=== PATIENT | male | born 1995 | race Caucasian/White ===

== ENCOUNTER 2020-10-27 22:14 | Inpatient (IN) | payer MEDICAID, OTHER ==
[~2020-10-27] VITALS: Ht 177.8 cm; Wt 65.9 kg
[2020-10-27] MEDS ORDERED: HALOPERIDOL 5 MG TABLET PO PRN (23:30)
[2020-10-27] MEDS ORDERED: ZOLPIDEM TARTRATE 10 MG TABLET PO PRN (23:30)
[2020-10-27] MEDS ORDERED: LORazepam 2 MG TABLET PO PRN (23:30)
[2020-10-28 00:52] LABS: COVID AG,FIA SOURCE NASOPHARYNGEAL
[2020-10-28 00:57] LABS: APPEARANCE,URINE CLEAR (CLEAR); BILIRUBIN,URINE NEGATIVE (NEGATIVE); GLUCOSE, URINE (UA) NEGATIVE (NEGATIVE); KETONES,URINE NEGATIVE (NEGATIVE); LEUKOCYTE ESTERASE ,URINE NEGATIVE (NEGATIVE); NITRATE,URINE NEGATIVE (NEGATIVE); OCCULT BLOOD,URINE NEGATIVE (NEGATIVE); PH,URINE 5.5 (5.0-8.0); PROTEIN,URINE NEGATIVE (NEGATIVE); UROBILINOGEN,URINE 0.2 mg/dL (<=1.0)
[2020-10-28] MEDS ORDERED: LORazepam 2 MG/ML VIAL IM ONE (01:00)
[2020-10-28] MEDS ORDERED: HALOPERIDOL LACTATE 5 MG/ML VIAL IM ONE (01:00)
[2020-10-28] MEDS ORDERED: DiphenhydrAMINE HCL 50 MG/ML VIAL IM ONE (01:00)
[2020-10-28 01:02] LABS: AMPHET/METH SCREEN,URINE POSITIVE (NEGATIVE); BARBITURATE SCREEN, URINE NEGATIVE (NEGATIVE); BENZODIAZEPINES SCREEN,URINE NEGATIVE (NEGATIVE); CANNABINOID SCREEN,URINE NEGATIVE (NEGATIVE); COCAINE SCREEN,URINE NEGATIVE (NEGATIVE); METHADONE SCREEN, URINE NEGATIVE (NEGATIVE); OPIATE SCREEN,URINE NEGATIVE (NEGATIVE)
[2020-10-28 01:03] LABS: PHENCYCLIDINE SCREEN,URINE NEGATIVE (NEGATIVE)
[2020-10-28 02:37] LABS: BASOPHILS % (AUTO) 0.4 % (0.0-2.0); HEMATOCRIT 44.9 % (41-53); HEMOGLOBIN 15.2 g/dL (13.5-17.5); LYMPHOCYTES # (AUTO) 3.4 K/uL (1.0-4.8); LYMPHOCYTES % (AUTO) 40.1 % (22.0-44.0); MEAN CORPUSCULAR HEMOGLOBIN 30.2 pg (26.0-34.0); MEAN CORPUSCULAR HGB CONC 33.9 G/dL (31.0-37.0); MEAN CORPUSCULAR VOLUME 89 fL (80-100); MONOCYTES # (AUTO) 0.8 K/uL (0.1-1.0); MONOCYTES % (AUTO) 8.9 % (2.0-9.0); NEUTROPHILS # (AUTO) 4.1 K/uL (1.8-7.7); NEUTROPHILS % (AUTO) 48.6 % (40.0-70.0); PLATELET COUNT (AUTO) 241 K/uL (150-450); RED BLOOD CELL COUNT(AUTO) 5.03 MIL/uL (4.50-5.90); RED CELL DISTRIBUTION WIDTH 12.7 % (11.5-14.5)
[2020-10-28 02:49] LABS: ANION GAP 6 mmol/L (8-16); CALCIUM, TOTAL 8.3 mg/dL (8.8-10.5); CARBON DIOXIDE 28 mmol/L (22-29); CHLORIDE 102 mmol/L (98-107); CREATININE 0.81 mg/dL (0.60-1.30); GLOMERULAR FILTR. RATE CALC > 60 mL/min (>60); GLUCOSE,RANDOM 93 mg/dL (70-110); POTASSIUM 3.2 mmol/L (3.5-5.1); SODIUM SERUM 136 mmol/L (136-145); UREA NITROGEN, BLOOD 13 mg/dL (7-18)
[2020-10-28 03:04] LABS: ALANINE AMINOTRANSFERASE 35 U/L (12-78); ALBUMIN 3.8 g/dL (3.4-5.0); ALKALINE PHOSPHATASE 74 U/L (46-116); ASPARTATE AMINOTRANSFERASE 22 U/L (15-37); BILIRUBIN,TOTAL 0.9 mg/dL (0.1-1.0); CHOLESTEROL 140 mg/dL (131-200); FREE T4 (FREE THYROXINE) 1.11 ng/dL (0.76-1.46); HDL CHOLESTEROL 47 mg/dL (40-60); LDL CHOL (CALC.) 86 mg/dL (0-130); THYROID STIMULATING HORMONE 2.61 uIU/mL (0.36-3.74); TOTAL PROTEIN, SERUM 6.8 g/dL (6.4-8.2); TRIGLYCERIDES 33 mg/dL (15-150)
[2020-10-28 16:12] VITALS: BP 123/73
[2020-10-28 17:02] VITALS: BP 123/73
[2020-10-29 06:27] VITALS: BP 106/60
[2020-10-29] MEDS ORDERED: ALBUTEROL SULFATE HFA 90 MCG/PUFF 8 GM INHALER IH PRN (08:15)
[2020-10-29] MEDS ORDERED: MAGNESIUM HYDROXIDE SUSPENSION 30 ML UDCUP PO PRN (08:15)
[2020-10-29] MEDS ORDERED: GuaiFENesin/D-METHORPHAN [SUGAR-FREE] 200-20MG/10 ML SYRUP UDCUP PO PRN (08:15)
[2020-10-29] MEDS ORDERED: NICOTINE 14 MG/24 HOUR PATCH TD PRN (08:15)
[2020-10-29] MEDS ORDERED: ONDANSETRON HCL 4 MG TABLET PO PRN (08:15)
[2020-10-29] MEDS ORDERED: MAG HYDROX/AL HYDROX/SIMETH ES 30 ML SUSPENSION UDCUP PO PRN (08:15)
[2020-10-29] MEDS ORDERED: DOCUSATE SODIUM 100 MG CAPSULE PO PRN (08:15)
[2020-10-29] MEDS ORDERED: PETROLATUM,WHITE 28 GM JELLY TP PRN (08:15)
[2020-10-29] MEDS ORDERED: LOPERAMIDE HCL 2 MG CAPSULE PO PRN (08:15)
[2020-10-29] MEDS ORDERED: CloNIDine HCL 0.1 MG TABLET PO PRN (08:15)
[2020-10-29] MEDS ORDERED: ACETAMINOPHEN 325 MG TABLET PO PRN (08:15)
[2020-10-29] MEDS ORDERED: IBUPROFEN 400 MG TABLET PO PRN (08:15)
[2020-10-29 08:27] VITALS: BP 105/54
[2020-10-29] MEDS ORDERED: POTASSIUM CHLORIDE 20 MEQ ER TABLET PO ONE (09:00)
[2020-10-29 16:17] VITALS: BP 120/63
[2020-10-30 06:10] VITALS: BP 142/89
[2020-10-30 08:24] VITALS: BP 109/59
== END 2020-10-30 13:46 | disposition home or self-care (01) | DRG 750 ==
LOC: EMS 22:25 → B3A 10-28 13:33
PROVIDERS: ADMIT Psychiatry & Neurology Psychiatry; ATTEND Psychiatry & Neurology Psychiatry
DX: F20.9 Schizophrenia, unspecified (principal); I95.9 Hypotension, unspecified; E87.6 Hypokalemia; Z20.822 Contact with and (suspected) exposure to COVID-19; F15.10 Other stimulant abuse, uncomplicated; F17.210 Nicotine dependence, cigarettes, uncomplicated; Z88.1 Allergy status to other antibiotic agents
CPT/HCPCS: 80053; 80061; 81003; 84132; 84439; 84443; 85025; 99285; G0480; J1200; J1630; J2060

== ENCOUNTER 2020-11-23 16:35 | Inpatient (IN) | payer MEDICAID, OTHER ==
[~2020-11-23] VITALS: Ht 180.3 cm; Wt 73.9 kg
[2020-11-23 17:13] LABS: COVID AG,FIA SOURCE NASOPHARYNGEAL
[2020-11-23 17:14] LABS: BASOPHILS % (AUTO) 0.4 % (0.0-2.0); EOSINOPHILS % (AUTO) 1.9 % (1.0-6.0); HEMOGLOBIN 14.8 g/dL (13.5-17.5); LYMPHOCYTES # (AUTO) 2.4 K/uL (1.0-4.8); LYMPHOCYTES % (AUTO) 24.8 % (22.0-44.0); MEAN CORPUSCULAR HEMOGLOBIN 29.9 pg (26.0-34.0); MEAN CORPUSCULAR HGB CONC 33.6 G/dL (31.0-37.0); MEAN CORPUSCULAR VOLUME 89 fL (80-100); MONOCYTES # (AUTO) 0.7 K/uL (0.1-1.0); MONOCYTES % (AUTO) 7.2 % (2.0-9.0); NEUTROPHILS # (AUTO) 6.3 K/uL (1.8-7.7); NEUTROPHILS % (AUTO) 65.7 % (40.0-70.0); PLATELET COUNT (AUTO) 282 K/uL (150-450); RED BLOOD CELL COUNT(AUTO) 4.93 MIL/uL (4.50-5.90); RED CELL DISTRIBUTION WIDTH 12.4 % (11.5-14.5)
[2020-11-23 17:23] LABS: ANION GAP 8 mmol/L (8-16); CALCIUM, TOTAL 8.9 mg/dL (8.8-10.5); CARBON DIOXIDE 30 mmol/L (22-29); CHLORIDE 104 mmol/L (98-107); CREATININE 1.12 mg/dL (0.60-1.30); GLOMERULAR FILTR. RATE CALC > 60 mL/min (>60); GLUCOSE,RANDOM 109 mg/dL (70-110); POTASSIUM 3.6 mmol/L (3.5-5.1); SODIUM SERUM 142 mmol/L (136-145); UREA NITROGEN, BLOOD 15 mg/dL (7-18)
[2020-11-23 17:29] LABS: ALANINE AMINOTRANSFERASE 50 U/L (12-78); ALBUMIN 3.5 g/dL (3.4-5.0); ALKALINE PHOSPHATASE 79 U/L (46-116); ASPARTATE AMINOTRANSFERASE 22 U/L (15-37); BILIRUBIN,TOTAL 0.4 mg/dL (0.1-1.0); TOTAL PROTEIN, SERUM 6.9 g/dL (6.4-8.2)
[2020-11-23] MEDS ORDERED: LORazepam 2 MG TABLET PO PRN (18:00)
[2020-11-23] MEDS ORDERED: HALOPERIDOL 5 MG TABLET PO PRN (18:00)
[2020-11-23] MEDS ORDERED: ZOLPIDEM TARTRATE 10 MG TABLET PO PRN (18:00)
[2020-11-23 20:07] LABS: AMPHET/METH SCREEN,URINE POSITIVE (NEGATIVE); BARBITURATE SCREEN, URINE NEGATIVE (NEGATIVE); BENZODIAZEPINES SCREEN,URINE NEGATIVE (NEGATIVE); CANNABINOID SCREEN,URINE NEGATIVE (NEGATIVE); COCAINE SCREEN,URINE NEGATIVE (NEGATIVE); METHADONE SCREEN, URINE NEGATIVE (NEGATIVE); OPIATE SCREEN,URINE NEGATIVE (NEGATIVE)
[2020-11-23 20:19] LABS: PHENCYCLIDINE SCREEN,URINE NEGATIVE (NEGATIVE)
[2020-11-24 02:10] LABS: APPEARANCE,URINE TURBID (CLEAR); BILIRUBIN,URINE NEGATIVE (NEGATIVE); GLUCOSE, URINE (UA) NEGATIVE (NEGATIVE); KETONES,URINE NEGATIVE (NEGATIVE); LEUKOCYTE ESTERASE ,URINE NEGATIVE (NEGATIVE); NITRATE,URINE NEGATIVE (NEGATIVE); OCCULT BLOOD,URINE NEGATIVE (NEGATIVE); PROTEIN,URINE NEGATIVE (NEGATIVE); UROBILINOGEN,URINE 0.2 mg/dL (<=1.0)
[2020-11-24 02:24] LABS: CHOL/HDL RATIO 2.8 (4.2-7.3); CHOLESTEROL 144 mg/dL (131-200); FREE T4 (FREE THYROXINE) 0.85 ng/dL (0.76-1.46); HDL CHOLESTEROL 52 mg/dL (40-60); LDL CHOL (CALC.) 82 mg/dL (0-130); THYROID STIMULATING HORMONE 0.98 uIU/mL (0.36-3.74); TRIGLYCERIDES 49 mg/dL (15-150)
[2020-11-24 17:00] VITALS: BP 124/73
[2020-11-25] MEDS: RisperiDONE 1 MG TABLET PO SCH ×2 (10:15→16:16)
[2020-11-25] MEDS ORDERED: MAGNESIUM HYDROXIDE SUSPENSION 30 ML UDCUP PO PRN (13:15)
[2020-11-25] MEDS ORDERED: PETROLATUM,WHITE 28 GM JELLY TP PRN (13:15)
[2020-11-25] MEDS ORDERED: NICOTINE 14 MG/24 HOUR PATCH TD PRN (13:15)
[2020-11-25] MEDS ORDERED: DOCUSATE SODIUM 100 MG CAPSULE PO PRN (13:15)
[2020-11-25] MEDS ORDERED: CloNIDine HCL 0.1 MG TABLET PO PRN (13:15)
[2020-11-25] MEDS ORDERED: MAG HYDROX/AL HYDROX/SIMETH ES 30 ML SUSPENSION UDCUP PO PRN (13:15)
[2020-11-25] MEDS ORDERED: LOPERAMIDE HCL 2 MG CAPSULE PO PRN (13:15)
[2020-11-25] MEDS ORDERED: GuaiFENesin/D-METHORPHAN [SUGAR-FREE] 200-20MG/10 ML SYRUP UDCUP PO PRN (13:15)
[2020-11-25] MEDS ORDERED: IBUPROFEN 400 MG TABLET PO PRN (13:15)
[2020-11-25] MEDS ORDERED: ALBUTEROL SULFATE HFA 90 MCG/PUFF 8 GM INHALER IH PRN (13:15)
[2020-11-25] MEDS ORDERED: ONDANSETRON HCL 4 MG TABLET PO PRN (13:15)
[2020-11-25] MEDS ORDERED: ACETAMINOPHEN 325 MG TABLET PO PRN (13:15)
[2020-11-26] MEDS: RisperiDONE 1 MG TABLET PO SCH (08:22)
== END 2020-11-26 14:45 | disposition home or self-care (01) | DRG 750 ==
LOC: EMS 16:44 → 3EI 11-24 18:06
PROVIDERS: ADMIT Psychiatry & Neurology Child & Adolescent Psychiatry; ATTEND Psychiatry & Neurology Child & Adolescent Psychiatry
DX: F20.9 Schizophrenia, unspecified (principal); R00.1 Bradycardia, unspecified; F15.10 Other stimulant abuse, uncomplicated; F41.9 Anxiety disorder, unspecified; G44.209 Tension-type headache, unspecified, not intractable; F17.200 Nicotine dependence, unspecified, uncomplicated; Z20.822 Contact with and (suspected) exposure to COVID-19; Z88.1 Allergy status to other antibiotic agents; Z81.4 Family history of other substance abuse and dependence
CPT/HCPCS: 80053; 80061; 81003; 84439; 84443; 85025; 87081; 99285; G0480

== ENCOUNTER 2021-10-22 11:36 | Inpatient (IN) | payer MEDICAID, OTHER ==
[~2021-10-22] VITALS: Ht 165.1 cm; Wt 62.8 kg
[2021-10-22 12:53] LABS: BASOPHILS % (AUTO) 0.5 % (0.0-2.0); EOSINOPHILS % (AUTO) 0.6 % (1.0-6.0); HEMATOCRIT 42.9 % (41-53); HEMOGLOBIN 14.5 g/dL (13.5-17.5); LYMPHOCYTES # (AUTO) 1.6 K/uL (1.0-4.8); MEAN CORPUSCULAR HEMOGLOBIN 28.7 pg (26.0-34.0); MEAN CORPUSCULAR HGB CONC 33.7 G/dL (31.0-37.0); MEAN CORPUSCULAR VOLUME 85 fL (80-100); MONOCYTES # (AUTO) 0.5 K/uL (0.1-1.0); MONOCYTES % (AUTO) 6.3 % (2.0-9.0); NEUTROPHILS # (AUTO) 6.5 K/uL (1.8-7.7); NEUTROPHILS % (AUTO) 74.6 % (40.0-70.0); PLATELET COUNT (AUTO) 297 K/uL (150-450); RED BLOOD CELL COUNT(AUTO) 5.05 MIL/uL (4.50-5.90); RED CELL DISTRIBUTION WIDTH 13.9 % (11.5-14.5)
[2021-10-22 13:10] LABS: ANION GAP 5 mmol/L (8-16); CALCIUM, TOTAL 9.6 mg/dL (8.8-10.5); CARBON DIOXIDE 32 mmol/L (22-29); CHLORIDE 100 mmol/L (98-107); CREATININE 0.73 mg/dL (0.60-1.30); GLUCOSE,RANDOM 103 mg/dL (70-110); POTASSIUM 4.2 mmol/L (3.5-5.1); SODIUM SERUM 137 mmol/L (136-145); UREA NITROGEN, BLOOD 8 mg/dL (7-18)
[2021-10-22 13:13] LABS: GLOMERULAR FILTR. RATE CALC > 60 mL/min (>60)
[2021-10-22 13:16] LABS: ALANINE AMINOTRANSFERASE 30 U/L (12-78); ALBUMIN 4.3 g/dL (3.4-5.0); ALKALINE PHOSPHATASE 92 U/L (46-116); ASPARTATE AMINOTRANSFERASE 25 U/L (15-37); BILIRUBIN,TOTAL 0.4 mg/dL (0.1-1.0); TOTAL PROTEIN, SERUM 8.6 g/dL (6.4-8.2)
[2021-10-22] MEDS ORDERED: LIDOCAINE 1%/EPI 1:200,000/PF 30 ML VIAL SQ ONE (14:45)
[2021-10-22] MEDS ORDERED: BACITRACIN 28 GM OINTMENT TP ONE (14:45)
[2021-10-22] MEDS ORDERED: LORazepam 2 MG/ML VIAL IM ONE (14:45)
[2021-10-22] MEDS ORDERED: HALOPERIDOL LACTATE 5 MG/ML VIAL IM ONE (14:45)
[2021-10-22] MEDS ORDERED: DiphenhydrAMINE HCL 50 MG/ML VIAL IM ONE (14:45)
[2021-10-22 15:10] LABS: COVID AG,FIA SOURCE NASOPHARYNGEAL
[2021-10-22] MEDS: ZOLPIDEM TARTRATE 10 MG TABLET PO PRN (22:28)
[2021-10-22 22:50] VITALS: BP 136/85
[2021-10-22] MEDS: HALOPERIDOL 5 MG TABLET PO PRN (23:49)
[2021-10-22] MEDS: LORazepam 2 MG TABLET PO PRN (23:49)
[2021-10-23] MEDS ORDERED: PERTUSS(ACELL),DIPH,TET VAC/PF 0.5 ML SYRINGE IM. ONE ×2 (04:00→09:00)
[2021-10-23] MEDS: BACITRACIN 28 GM OINTMENT TP SCH ×3 (09:00)
[2021-10-23 16:28] VITALS: BP 126/84
[2021-10-23] MEDS: HALOPERIDOL 5 MG TABLET PO PRN (17:05)
[2021-10-23] MEDS ORDERED: CloNIDine HCL 0.1 MG TABLET PO PRN (22:45)
[2021-10-23] MEDS ORDERED: MAG HYDROX/AL HYDROX/SIMETH ES 30 ML SUSPENSION UDCUP PO PRN (22:45)
[2021-10-23] MEDS ORDERED: PETROLATUM,WHITE 28 GM JELLY TP PRN (22:45)
[2021-10-23] MEDS ORDERED: ACETAMINOPHEN 325 MG TABLET PO PRN (22:45)
[2021-10-23] MEDS ORDERED: DOCUSATE SODIUM 100 MG CAPSULE PO PRN (22:45)
[2021-10-23] MEDS ORDERED: ONDANSETRON HCL 4 MG TABLET PO PRN (22:45)
[2021-10-23] MEDS ORDERED: ALBUTEROL SULFATE HFA 90 MCG/PUFF 8 GM INHALER IH PRN (22:45)
[2021-10-23] MEDS ORDERED: MAGNESIUM HYDROXIDE SUSPENSION 30 ML UDCUP PO PRN (22:45)
[2021-10-23] MEDS ORDERED: LOPERAMIDE HCL 2 MG CAPSULE PO PRN (22:45)
[2021-10-23] MEDS ORDERED: BENZOCAINE/MENTHOL LOZENGE PO PRN (22:45)
[2021-10-23] MEDS ORDERED: OMEPRAZOLE 20 MG CAPSULE PO PRN (22:45)
[2021-10-24] MEDS: BACITRACIN 28 GM OINTMENT TP SCH ×3 (09:00)
[2021-10-24] MEDS: RisperiDONE 3 MG TABLET PO SCH ×2 (09:00→17:00)
[2021-10-24 16:00] VITALS: BP 122/75
[2021-10-25] MEDS: LORazepam 2 MG TABLET PO PRN (08:18)
[2021-10-25] MEDS: RisperiDONE 3 MG TABLET PO SCH ×2 (08:18→16:37)
[2021-10-25] MEDS: BACITRACIN 28 GM OINTMENT TP SCH ×3 (08:18→08:20)
[2021-10-25] MEDS: IBUPROFEN 600 MG TABLET PO PRN (08:19)
[2021-10-25] MEDS ORDERED: DiphenhydrAMINE HCL 50 MG/ML VIAL ONE (08:26)
[2021-10-25] MEDS ORDERED: HALOPERIDOL LACTATE 5 MG/ML VIAL ONE (08:26)
[2021-10-25] MEDS ORDERED: LORazepam 2 MG/ML VIAL ONE (08:26)
[2021-10-25] MEDS ORDERED: LORazepam 2 MG/ML VIAL IM ONE (08:30)
[2021-10-25] MEDS ORDERED: HALOPERIDOL LACTATE 5 MG/ML VIAL IM ONE (08:30)
[2021-10-25] MEDS ORDERED: DiphenhydrAMINE HCL 50 MG/ML VIAL IM ONE (08:30)
[2021-10-25 16:13] VITALS: BP 115/71
[2021-10-26] MEDS: RisperiDONE 3 MG TABLET PO SCH ×3 (07:28→17:00)
[2021-10-26] MEDS: BACITRACIN 28 GM OINTMENT TP SCH ×3 (07:32→09:56)
[2021-10-26] MEDS: IBUPROFEN 600 MG TABLET PO PRN ×2 (07:32→15:48)
[2021-10-26] MEDS: LORazepam 2 MG TABLET PO PRN (11:09)
[2021-10-26] MEDS ORDERED: PERTUSS(ACELL),DIPH,TET VAC/PF 0.5 ML SYRINGE IM. ONE (11:30)
[2021-10-26 14:54] VITALS: BP 143/96
[2021-10-26] MEDS: SULFAMETHOX/TRIMETH DS 800-160 MG/TABLET PO SCH (17:00)
[2021-10-26] MEDS: ZOLPIDEM TARTRATE 10 MG TABLET PO PRN (20:11)
[2021-10-27] MEDS: SULFAMETHOX/TRIMETH DS 800-160 MG/TABLET PO SCH ×2 (08:41→16:41)
[2021-10-27] MEDS: RisperiDONE 3 MG TABLET PO SCH ×2 (08:41→16:41)
[2021-10-27] MEDS: LORazepam 2 MG TABLET PO PRN (09:58)
[2021-10-27] MEDS: BACITRACIN 28 GM OINTMENT TP SCH ×3 (10:00→10:02)
[2021-10-27] MEDS: DIVALPROEX SODIUM 500 MG DR TABLET PO SCH (16:41)
[2021-10-27 17:05] VITALS: BP 140/90
[2021-10-28] MEDS: ZOLPIDEM TARTRATE 10 MG TABLET PO PRN ×2 (00:44→22:40)
[2021-10-28] MEDS: LORazepam 2 MG TABLET PO PRN ×2 (07:30→20:55)
[2021-10-28] MEDS: SULFAMETHOX/TRIMETH DS 800-160 MG/TABLET PO SCH ×3 (07:30→16:28)
[2021-10-28] MEDS: RisperiDONE 3 MG TABLET PO SCH ×3 (07:30→16:29)
[2021-10-28] MEDS: DIVALPROEX SODIUM 500 MG DR TABLET PO SCH ×3 (07:31→16:29)
[2021-10-28] MEDS: BACITRACIN 28 GM OINTMENT TP SCH ×3 (07:53→07:54)
[2021-10-28 08:20] VITALS: BP 132/93
[2021-10-28 19:49] VITALS: BP 137/94
[2021-10-29 02:19] VITALS: BP 123/88
[2021-10-29] MEDS: IBUPROFEN 600 MG TABLET PO PRN (02:19)
[2021-10-29 07:38] LABS: COVID AG,FIA SOURCE NASAL SWAB
[2021-10-29] MEDS: SULFAMETHOX/TRIMETH DS 800-160 MG/TABLET PO SCH ×2 (07:51→17:00)
[2021-10-29] MEDS: LORazepam 2 MG TABLET PO PRN ×2 (07:53→13:15)
[2021-10-29] MEDS: RisperiDONE 3 MG TABLET PO SCH ×2 (07:58→17:00)
[2021-10-29] MEDS: DIVALPROEX SODIUM 500 MG DR TABLET PO SCH ×2 (07:58→17:00)
[2021-10-29] MEDS: BACITRACIN 28 GM OINTMENT TP SCH ×3 (07:58→07:59)
[2021-10-29 08:18] VITALS: BP 144/93
[2021-10-29] MEDS ORDERED: HALOPERIDOL LACTATE 5 MG/ML VIAL ONE (15:27)
[2021-10-29] MEDS ORDERED: DiphenhydrAMINE HCL 50 MG/ML VIAL ONE (15:27)
[2021-10-29] MEDS ORDERED: LORazepam 2 MG/ML VIAL ONE (15:28)
[2021-10-29] MEDS ORDERED: HALOPERIDOL LACTATE 5 MG/ML VIAL IM ONE (15:45)
[2021-10-29] MEDS ORDERED: DiphenhydrAMINE HCL 50 MG/ML VIAL IM ONE (15:45)
[2021-10-29] MEDS ORDERED: LORazepam 2 MG/ML VIAL IM ONE (15:45)
[2021-10-29 16:41] VITALS: BP 140/83
[2021-10-30] MEDS: SULFAMETHOX/TRIMETH DS 800-160 MG/TABLET PO SCH ×3 (08:17→17:00)
[2021-10-30] MEDS: DIVALPROEX SODIUM 500 MG DR TABLET PO SCH ×3 (08:17→17:00)
[2021-10-30] MEDS: RisperiDONE 3 MG TABLET PO SCH ×3 (08:17→17:00)
[2021-10-30] MEDS: BACITRACIN 28 GM OINTMENT TP SCH ×3 (08:18)
[2021-10-30] MEDS: LORazepam 2 MG TABLET PO PRN (09:57)
[2021-10-30 10:13] VITALS: BP 151/95
[2021-10-31] MEDS: LORazepam 2 MG TABLET PO PRN ×3 (00:50→12:52)
[2021-10-31] MEDS: ZOLPIDEM TARTRATE 10 MG TABLET PO PRN (00:50)
[2021-10-31] MEDS: SULFAMETHOX/TRIMETH DS 800-160 MG/TABLET PO SCH ×2 (07:55→16:32)
[2021-10-31] MEDS: BACITRACIN 28 GM OINTMENT TP SCH ×3 (07:56)
[2021-10-31] MEDS: RisperiDONE 3 MG TABLET PO SCH ×2 (07:56→16:32)
[2021-10-31] MEDS: DIVALPROEX SODIUM 500 MG DR TABLET PO SCH ×2 (07:56→16:32)
[2021-10-31 08:29] VITALS: BP 131/91
[2021-10-31] MEDS: HALOPERIDOL 5 MG TABLET PO PRN (12:52)
[2021-10-31 16:12] VITALS: BP 131/74
[2021-11-01 08:20] VITALS: BP 125/87
[2021-11-01] MEDS: SULFAMETHOX/TRIMETH DS 800-160 MG/TABLET PO SCH ×2 (08:27→16:28)
[2021-11-01] MEDS: RisperiDONE 3 MG TABLET PO SCH ×2 (08:27→16:29)
[2021-11-01] MEDS: DIVALPROEX SODIUM 500 MG DR TABLET PO SCH ×2 (08:27→16:29)
[2021-11-01] MEDS: BACITRACIN 28 GM OINTMENT TP SCH ×3 (08:27→08:29)
[2021-11-01 14:26] VITALS: BP 120/80
[2021-11-01] MEDS: IBUPROFEN 600 MG TABLET PO PRN (14:26)
[2021-11-01 16:42] VITALS: BP 119/85
[2021-11-01] MEDS: LORazepam 2 MG TABLET PO PRN (17:30)
[2021-11-01] MEDS: HALOPERIDOL 5 MG TABLET PO PRN (17:30)
[2021-11-01 17:59] LABS: APPEARANCE,URINE CLEAR (CLEAR); BILIRUBIN,URINE NEGATIVE (NEGATIVE); GLUCOSE, URINE (UA) NEGATIVE (NEGATIVE); KETONES,URINE NEGATIVE (NEGATIVE); LEUKOCYTE ESTERASE ,URINE NEGATIVE (NEGATIVE); NITRATE,URINE NEGATIVE (NEGATIVE); OCCULT BLOOD,URINE NEGATIVE (NEGATIVE); PH,URINE 6.5 (5.0-8.0); PROTEIN,URINE NEGATIVE (NEGATIVE); SPECIFIC GRAVITIY, URINE 1.006 (1.003-1.030); UROBILINOGEN,URINE <=1.0 mg/dL (<=1.0)
[2021-11-01 18:05] LABS: AMPHET/METH SCREEN,URINE NEGATIVE (NEGATIVE); BARBITURATE SCREEN, URINE NEGATIVE (NEGATIVE); BENZODIAZEPINES SCREEN,URINE NEGATIVE (NEGATIVE); CANNABINOID SCREEN,URINE NEGATIVE (NEGATIVE); COCAINE SCREEN,URINE NEGATIVE (NEGATIVE); METHADONE SCREEN, URINE NEGATIVE (NEGATIVE); OPIATE SCREEN,URINE NEGATIVE (NEGATIVE)
[2021-11-01 18:06] LABS: PHENCYCLIDINE SCREEN,URINE NEGATIVE (NEGATIVE)
[2021-11-02 08:18] VITALS: BP 117/82
[2021-11-02] MEDS: SULFAMETHOX/TRIMETH DS 800-160 MG/TABLET PO SCH ×2 (08:29→16:39)
[2021-11-02] MEDS: DIVALPROEX SODIUM 500 MG DR TABLET PO SCH ×2 (08:29→16:40)
[2021-11-02] MEDS: RisperiDONE 3 MG TABLET PO SCH ×2 (08:29→16:40)
[2021-11-02] MEDS: BACITRACIN 28 GM OINTMENT TP SCH ×3 (08:31→09:10)
[2021-11-02 16:15] VITALS: BP 130/82
[2021-11-02] MEDS: LORazepam 2 MG TABLET PO PRN (16:44)
[2021-11-02] MEDS: HALOPERIDOL 5 MG TABLET PO PRN (18:05)
[2021-11-03 08:24] VITALS: BP 130/91
[2021-11-03] MEDS: DIVALPROEX SODIUM 500 MG DR TABLET PO SCH ×2 (09:00→16:10)
[2021-11-03] MEDS: RisperiDONE 3 MG TABLET PO SCH ×2 (09:53→16:08)
[2021-11-03] MEDS: SULFAMETHOX/TRIMETH DS 800-160 MG/TABLET PO SCH ×2 (09:53→16:08)
[2021-11-03] MEDS: HALOPERIDOL 5 MG TABLET PO PRN ×2 (09:53→16:08)
[2021-11-03] MEDS: LORazepam 2 MG TABLET PO PRN ×2 (09:54→16:07)
[2021-11-03 16:04] VITALS: BP 116/73
[2021-11-04 08:00] VITALS: BP 142/103
[2021-11-04] MEDS: DIVALPROEX SODIUM 500 MG DR TABLET PO SCH ×2 (09:00→16:14)
[2021-11-04] MEDS: LORazepam 2 MG TABLET PO PRN ×2 (09:41→19:55)
[2021-11-04] MEDS: HALOPERIDOL 5 MG TABLET PO PRN ×2 (09:41→16:18)
[2021-11-04] MEDS: RisperiDONE 3 MG TABLET PO SCH ×2 (09:41→16:17)
[2021-11-04] MEDS: SULFAMETHOX/TRIMETH DS 800-160 MG/TABLET PO SCH ×2 (09:41→16:17)
[2021-11-04 16:16] VITALS: BP 128/84
[2021-11-04] MEDS: IBUPROFEN 600 MG TABLET PO PRN (19:06)
[2021-11-05 08:00] VITALS: BP 120/77
[2021-11-05] MEDS: LORazepam 2 MG TABLET PO PRN (08:26)
[2021-11-05] MEDS: HALOPERIDOL 5 MG TABLET PO PRN (08:26)
[2021-11-05] MEDS: SULFAMETHOX/TRIMETH DS 800-160 MG/TABLET PO SCH (08:26)
[2021-11-05] MEDS: IBUPROFEN 600 MG TABLET PO PRN ×2 (08:26→16:21)
[2021-11-05] MEDS: DIVALPROEX SODIUM 500 MG DR TABLET PO SCH ×2 (08:26→16:17)
[2021-11-05] MEDS: RisperiDONE 3 MG TABLET PO SCH ×2 (08:26→16:17)
[2021-11-05 16:00] VITALS: BP 135/81
[2021-11-06 06:44] LABS: COVID AG,FIA SOURCE NASAL SWAB
[2021-11-06] MEDS: DIVALPROEX SODIUM 500 MG DR TABLET PO SCH ×2 (09:00→16:06)
[2021-11-06] MEDS: LORazepam 2 MG TABLET PO PRN ×3 (09:17→20:20)
[2021-11-06] MEDS: RisperiDONE 3 MG TABLET PO SCH ×2 (09:17→16:06)
[2021-11-06 16:26] VITALS: BP 134/77
[2021-11-07 08:30] VITALS: BP 151/98
[2021-11-07] MEDS: RisperiDONE 3 MG TABLET PO SCH ×3 (09:23→17:00)
[2021-11-07] MEDS: DIVALPROEX SODIUM 500 MG DR TABLET PO SCH ×3 (09:23→17:00)
[2021-11-07] MEDS: IBUPROFEN 600 MG TABLET PO PRN (12:10)
[2021-11-07] MEDS: ZOLPIDEM TARTRATE 10 MG TABLET PO PRN (23:45)
[2021-11-08 08:00] VITALS: BP 105/82
[2021-11-08] MEDS: DIVALPROEX SODIUM 500 MG DR TABLET PO SCH ×2 (09:00→17:00)
[2021-11-08] MEDS: RisperiDONE 3 MG TABLET PO SCH ×2 (09:38→17:00)
[2021-11-08] MEDS ORDERED: DIVA-112 PO (11:42)
[2021-11-08] MEDS ORDERED: RISP3TAB63 PO (11:42)
== END 2021-11-08 15:15 | disposition home or self-care (01) | DRG 750 ==
LOC: EMS 11:43 → 3EC 19:28
PROVIDERS: ADMIT Psychiatry & Neurology Psychiatry; ATTEND Psychiatry & Neurology Psychiatry
DX: F25.9 Schizoaffective disorder, unspecified (principal); F41.9 Anxiety disorder, unspecified; Z20.822 Contact with and (suspected) exposure to COVID-19; G47.00 Insomnia, unspecified; K59.00 Constipation, unspecified
CPT/HCPCS: 70450; 80053; 80164; 80307; 81003; 85025; 87070; 90715; G0480; J1200; J1630; J2060

== ENCOUNTER 2022-02-26 11:01 | Inpatient (IN) | payer MEDICAID, OTHER ==
[~2022-02-26] VITALS: Ht 170.2 cm; Wt 63.0 kg
[~2022-02-26 11:01] MED LIST: DIVA-112 PO; RISP3TAB63 PO
[2022-02-26 12:44] LABS: BASOPHILS % (AUTO) 0.5 % (0.0-2.0); EOSINOPHILS % (AUTO) 1.5 % (1.0-6.0); HEMATOCRIT 40.6 % (41-53); HEMOGLOBIN 13.4 g/dL (13.5-17.5); LYMPHOCYTES # (AUTO) 1.4 K/uL (1.0-4.8); LYMPHOCYTES % (AUTO) 17.8 % (22.0-44.0); MEAN CORPUSCULAR HGB CONC 32.9 G/dL (31.0-37.0); MEAN CORPUSCULAR VOLUME 88 fL (80-100); MONOCYTES # (AUTO) 0.8 K/uL (0.1-1.0); MONOCYTES % (AUTO) 9.7 % (2.0-9.0); NEUTROPHILS # (AUTO) 5.6 K/uL (1.8-7.7); NEUTROPHILS % (AUTO) 70.5 % (40.0-70.0); PLATELET COUNT (AUTO) 279 K/uL (150-450)
[2022-02-26 12:49] LABS: ANION GAP 4 mmol/L (8-16); CALCIUM, TOTAL 9.2 mg/dL (8.8-10.5); CARBON DIOXIDE 32 mmol/L (22-29); CHLORIDE 100 mmol/L (98-107); CREATININE 0.75 mg/dL (0.60-1.30); GLUCOSE,RANDOM 98 mg/dL (70-110); POTASSIUM 3.5 mmol/L (3.5-5.1); SODIUM SERUM 136 mmol/L (136-145); UREA NITROGEN, BLOOD 21 mg/dL (7-18)
[2022-02-26 12:51] LABS: GLOMERULAR FILTR. RATE CALC > 60 mL/min (>60)
[2022-02-26 12:55] LABS: ALANINE AMINOTRANSFERASE 78 U/L (12-78); ALBUMIN 4.1 g/dL (3.4-5.0); ALKALINE PHOSPHATASE 103 U/L (46-116); ASPARTATE AMINOTRANSFERASE 88 U/L (15-37); BILIRUBIN,TOTAL 0.6 mg/dL (0.1-1.0); TOTAL PROTEIN, SERUM 7.7 g/dL (6.4-8.2)
[2022-02-26] MEDS ORDERED: DiphenhydrAMINE HCL 50 MG/ML VIAL IM ONE (14:45)
[2022-02-26] MEDS ORDERED: LORazepam 2 MG/ML VIAL IM ONE (14:45)
[2022-02-26] MEDS ORDERED: HALOPERIDOL LACTATE 5 MG/ML VIAL IM ONE (14:45)
[2022-02-26 15:16] LABS: COVID AG,FIA SOURCE NASOPHARYNGEAL
[2022-02-26] MEDS ORDERED: LORazepam 2 MG TABLET PO PRN (16:00)
[2022-02-26] MEDS ORDERED: HALOPERIDOL 5 MG TABLET PO PRN (16:00)
[2022-02-26] MEDS ORDERED: ZOLPIDEM TARTRATE 10 MG TABLET PO PRN (16:00)
[2022-02-27] MEDS ORDERED: ACETAMINOPHEN 325 MG TABLET PO PRN (07:45)
[2022-02-27] MEDS ORDERED: LOPERAMIDE HCL 2 MG CAPSULE PO PRN (07:45)
[2022-02-27] MEDS ORDERED: IBUPROFEN 600 MG TABLET PO PRN (07:45)
[2022-02-27] MEDS ORDERED: CloNIDine HCL 0.1 MG TABLET PO PRN (07:45)
[2022-02-27] MEDS ORDERED: PETROLATUM,WHITE 28 GM JELLY TP PRN (07:45)
[2022-02-27] MEDS ORDERED: MAGNESIUM HYDROXIDE SUSPENSION 30 ML UDCUP PO PRN (07:45)
[2022-02-27] MEDS ORDERED: BACITRACIN 28 GM OINTMENT TP PRN (07:45)
[2022-02-27] MEDS ORDERED: MAG HYDROX/AL HYDROX/SIMETH ES 30 ML SUSPENSION UDCUP PO PRN (07:45)
[2022-02-27] MEDS ORDERED: DOCUSATE SODIUM 100 MG CAPSULE PO PRN (07:45)
[2022-02-27] MEDS ORDERED: OMEPRAZOLE 20 MG CAPSULE PO PRN (07:45)
[2022-02-27] MEDS ORDERED: BENZOCAINE/MENTHOL LOZENGE PO PRN (07:45)
[2022-02-27] MEDS ORDERED: ALBUTEROL SULFATE HFA 90 MCG/PUFF 8 GM INHALER IH PRN (07:45)
[2022-02-27 08:00] VITALS: BP 141/86
[2022-02-27] MEDS: DIVALPROEX SODIUM 500 MG DR TABLET PO SCH ×2 (10:45→20:53)
[2022-02-27] MEDS: RisperiDONE 2 MG TABLET PO SCH ×2 (10:45→20:53)
[2022-02-27] MEDS: ONDANSETRON HCL 4 MG TABLET PO PRN ×2 (14:38→16:58)
[2022-02-28] MEDS: DIVALPROEX SODIUM 500 MG DR TABLET PO SCH ×2 (09:00→20:19)
[2022-02-28] MEDS: RisperiDONE 2 MG TABLET PO SCH ×2 (09:00→20:19)
[2022-02-28 16:17] VITALS: BP 131/77
[2022-03-01] MEDS: DIVALPROEX SODIUM 500 MG DR TABLET PO SCH ×2 (08:46→20:52)
[2022-03-01] MEDS: RisperiDONE 2 MG TABLET PO SCH ×2 (08:46→20:51)
[2022-03-01 16:00] VITALS: BP 138/99
[2022-03-02 08:40] LABS: APPEARANCE,URINE HAZY (CLEAR); BILIRUBIN,URINE NEGATIVE (NEGATIVE); GLUCOSE, URINE (UA) NEGATIVE (NEGATIVE); KETONES,URINE NEGATIVE (NEGATIVE); LEUKOCYTE ESTERASE ,URINE NEGATIVE (NEGATIVE); NITRATE,URINE NEGATIVE (NEGATIVE); OCCULT BLOOD,URINE NEGATIVE (NEGATIVE); PROTEIN,URINE NEGATIVE (NEGATIVE); SPECIFIC GRAVITIY, URINE 1.004 (1.003-1.030); UROBILINOGEN,URINE <=1.0 mg/dL (<=1.0)
[2022-03-02 08:46] LABS: AMPHET/METH SCREEN,URINE NEGATIVE (NEGATIVE); BARBITURATE SCREEN, URINE NEGATIVE (NEGATIVE); BENZODIAZEPINES SCREEN,URINE NEGATIVE (NEGATIVE); CANNABINOID SCREEN,URINE NEGATIVE (NEGATIVE); COCAINE SCREEN,URINE NEGATIVE (NEGATIVE); METHADONE SCREEN, URINE NEGATIVE (NEGATIVE); OPIATE SCREEN,URINE NEGATIVE (NEGATIVE); PHENCYCLIDINE SCREEN,URINE NEGATIVE (NEGATIVE)
[2022-03-02] MEDS: DIVALPROEX SODIUM 500 MG DR TABLET PO SCH (09:00)
[2022-03-02] MEDS: RisperiDONE 2 MG TABLET PO SCH (09:00)
[2022-03-02] MEDS ORDERED: RISP2TAB45 PO (13:29)
[2022-03-02] MEDS ORDERED: RISP2TAB86 PO (13:35)
[2022-03-02] MEDS ORDERED: DIVA-112 PO (13:35)
== END 2022-03-02 14:20 | disposition home or self-care (01) | DRG 750 ==
LOC: EMS 11:05 → 3EC 15:43
PROVIDERS: ADMIT Psychiatry & Neurology Psychiatry; ATTEND Psychiatry & Neurology Psychiatry
DX: F25.0 Schizoaffective disorder, bipolar type (principal); Z91.14 Patient's other noncompliance with medication regimen; F41.9 Anxiety disorder, unspecified; G47.00 Insomnia, unspecified; I10 Essential (primary) hypertension; K59.00 Constipation, unspecified; Z78.1 Physical restraint status; Z79.899 Other long term (current) drug therapy; Z88.1 Allergy status to other antibiotic agents; Z20.822 Contact with and (suspected) exposure to COVID-19
CPT/HCPCS: 80053; 81003; 85025; 99285; G0480; J1200; J1630; J2060; Q0162

== ENCOUNTER 2022-04-29 12:44 | Inpatient (IN) | payer MEDICAID, OTHER ==
[~2022-04-29] VITALS: Ht 162.6 cm; Wt 56.7 kg
[~2022-04-29 12:44] MED LIST changes: +RISP2TAB86 PO; -RISP3TAB63 PO
[2022-04-29] MEDS ORDERED: LORazepam 2 MG/ML VIAL IM ONE (14:00)
[2022-04-29] MEDS ORDERED: DiphenhydrAMINE HCL 50 MG/ML VIAL IM ONE (14:00)
[2022-04-29] MEDS ORDERED: HALOPERIDOL LACTATE 5 MG/ML VIAL IM ONE (14:00)
[2022-04-29] MEDS ORDERED: ZOLPIDEM TARTRATE 10 MG TABLET PO PRN (15:15)
[2022-04-29 16:13] LABS: BASOPHILS % (AUTO) 0.3 % (0.0-2.0); EOSINOPHILS % (AUTO) 0.3 % (1.0-6.0); HEMATOCRIT 42.8 % (41-53); HEMOGLOBIN 14.3 g/dL (13.5-17.5); LYMPHOCYTES # (AUTO) 1.5 K/uL (1.0-4.8); LYMPHOCYTES % (AUTO) 16.1 % (22.0-44.0); MEAN CORPUSCULAR HEMOGLOBIN 28.9 pg (26.0-34.0); MEAN CORPUSCULAR HGB CONC 33.5 G/dL (31.0-37.0); MEAN CORPUSCULAR VOLUME 86 fL (80-100); MONOCYTES # (AUTO) 0.5 K/uL (0.1-1.0); NEUTROPHILS # (AUTO) 7.1 K/uL (1.8-7.7); NEUTROPHILS % (AUTO) 78.3 % (40.0-70.0); PLATELET COUNT (AUTO) 325 K/uL (150-450); RED BLOOD CELL COUNT(AUTO) 4.97 MIL/uL (4.50-5.90); RED CELL DISTRIBUTION WIDTH 12.8 % (11.5-14.5)
[2022-04-29 16:29] LABS: ANION GAP 15 mmol/L (8-16); CALCIUM, TOTAL 9.4 mg/dL (8.8-10.5); CARBON DIOXIDE 25 mmol/L (22-29); CHLORIDE 98 mmol/L (98-107); CREATININE 0.86 mg/dL (0.60-1.30); GLOMERULAR FILTR. RATE CALC > 60 mL/min (>60); GLUCOSE,RANDOM 124 mg/dL (70-110); POTASSIUM 3.2 mmol/L (3.5-5.1); SODIUM SERUM 138 mmol/L (136-145); UREA NITROGEN, BLOOD 15 mg/dL (7-18)
[2022-04-29 16:33] LABS: ALANINE AMINOTRANSFERASE 43 U/L (12-78); ALBUMIN 4.2 g/dL (3.4-5.0); ALKALINE PHOSPHATASE 93 U/L (46-116); ASPARTATE AMINOTRANSFERASE 55 U/L (15-37); BILIRUBIN,TOTAL 0.6 mg/dL (0.1-1.0); TOTAL PROTEIN, SERUM 8.4 g/dL (6.4-8.2)
[2022-04-29 16:34] LABS: COVID AG,FIA SOURCE NASOPHARYNGEAL
[2022-04-29 16:34] LABS: VALPROIC ACID < 3 mcg/mL (50-100)
[2022-04-29 21:18] VITALS: BP 112/64
[2022-04-29] MEDS ORDERED: INFLUENZA VIRUS VACCINE QVS 2022-23 (6MO+)/PF 60 MCG/0.5 ML SYRINGE IM. ONE (21:45)
[2022-04-29] MEDS ORDERED: LOPERAMIDE HCL 2 MG CAPSULE PO PRN (22:00)
[2022-04-29] MEDS ORDERED: CloNIDine HCL 0.1 MG TABLET PO PRN (22:00)
[2022-04-29] MEDS ORDERED: ACETAMINOPHEN 325 MG TABLET PO PRN (22:00)
[2022-04-29] MEDS ORDERED: MAGNESIUM HYDROXIDE SUSPENSION 30 ML UDCUP PO PRN (22:00)
[2022-04-29] MEDS ORDERED: OMEPRAZOLE 20 MG CAPSULE PO PRN (22:00)
[2022-04-29] MEDS ORDERED: MAG HYDROX/AL HYDROX/SIMETH ES 30 ML SUSPENSION UDCUP PO PRN (22:00)
[2022-04-29] MEDS ORDERED: PETROLATUM,WHITE 28 GM JELLY TP PRN (22:00)
[2022-04-29] MEDS ORDERED: DOCUSATE SODIUM 100 MG CAPSULE PO PRN (22:00)
[2022-04-29] MEDS ORDERED: BENZOCAINE/MENTHOL LOZENGE PO PRN (22:00)
[2022-04-29] MEDS ORDERED: ALBUTEROL SULFATE HFA 90 MCG/PUFF 8 GM INHALER IH PRN (22:00)
[2022-04-29] MEDS ORDERED: BACITRACIN 28 GM OINTMENT TP PRN (22:00)
[2022-04-30 08:24] VITALS: BP 128/78
[2022-04-30] MEDS ORDERED: POTASSIUM CHLORIDE 20 MEQ ER TABLET PO ONE (09:00)
[2022-05-01] MEDS: HALOPERIDOL 5 MG TABLET PO PRN (03:47)
[2022-05-01] MEDS: LORazepam 2 MG TABLET PO PRN ×2 (03:47→17:48)
[2022-05-01 08:21] VITALS: BP 133/73
[2022-05-01 08:27] VITALS: BP 120/69
[2022-05-01] MEDS: ONDANSETRON HCL 4 MG TABLET PO PRN ×2 (08:36→17:48)
[2022-05-01 20:02] VITALS: BP 124/70
[2022-05-02 04:11] VITALS: BP 111/72
[2022-05-02 09:12] LABS: ALANINE AMINOTRANSFERASE 47 U/L (12-78); ALBUMIN 4.4 g/dL (3.4-5.0); ALKALINE PHOSPHATASE 97 U/L (46-116); ASPARTATE AMINOTRANSFERASE 40 U/L (15-37); BILIRUBIN,TOTAL 1.8 mg/dL (0.1-1.0); CALCIUM, TOTAL 10.2 mg/dL (8.8-10.5); CHLORIDE 77 mmol/L (98-107); CREATININE 1.24 mg/dL (0.60-1.30); GLOMERULAR FILTR. RATE CALC > 60 mL/min (>60); GLUCOSE,RANDOM 119 mg/dL (70-110); SODIUM SERUM 126 mmol/L (136-145); TOTAL PROTEIN, SERUM 9.2 g/dL (6.4-8.2); UREA NITROGEN, BLOOD 32 mg/dL (7-18)
[2022-05-02 09:21] LABS: ANION GAP 2 mmol/L (8-16)
[2022-05-02 09:23] LABS: CARBON DIOXIDE 47 mmol/L (22-29); POTASSIUM 2.6 mmol/L (3.5-5.1)
[2022-05-02 09:49] VITALS: BP 129/81
[2022-05-02] MEDS: POTASSIUM CHLORIDE 20 MEQ ER TABLET PO SCH ×2 (10:14→13:50)
[2022-05-02 16:37] VITALS: BP 144/93
[2022-05-02] MEDS: HALOPERIDOL 5 MG TABLET PO PRN (20:52)
[2022-05-02] MEDS: LORazepam 2 MG TABLET PO PRN (20:52)
[2022-05-03 08:06] VITALS: BP 122/80
[2022-05-03 09:40] VITALS: BP 122/80
[2022-05-03] MEDS: IBUPROFEN 600 MG TABLET PO PRN (09:40)
[2022-05-03] MEDS: LORazepam 2 MG TABLET PO PRN (09:40)
[2022-05-03 10:40] VITALS: BP 117/79
[2022-05-03 16:00] VITALS: BP 127/64
[2022-05-03] MEDS: RisperiDONE 3 MG TABLET PO SCH (16:20)
[2022-05-04] MEDS: RisperiDONE 3 MG TABLET PO SCH ×2 (08:55→16:12)
[2022-05-04 09:19] LABS: BASOPHILS % (AUTO) 0.2 % (0.0-2.0); EOSINOPHILS % (AUTO) 0.8 % (1.0-6.0); HEMATOCRIT 48.1 % (41-53); HEMOGLOBIN 16.4 g/dL (13.5-17.5); LYMPHOCYTES # (AUTO) 2.5 K/uL (1.0-4.8); LYMPHOCYTES % (AUTO) 19.7 % (22.0-44.0); MEAN CORPUSCULAR HGB CONC 34.2 G/dL (31.0-37.0); MEAN CORPUSCULAR VOLUME 85 fL (80-100); MONOCYTES # (AUTO) 0.9 K/uL (0.1-1.0); MONOCYTES % (AUTO) 7.5 % (2.0-9.0); NEUTROPHILS % (AUTO) 71.8 % (40.0-70.0); PLATELET COUNT (AUTO) 301 K/uL (150-450); RED BLOOD CELL COUNT(AUTO) 5.66 MIL/uL (4.50-5.90); RED CELL DISTRIBUTION WIDTH 12.7 % (11.5-14.5)
[2022-05-04 09:28] VITALS: BP 143/93
[2022-05-04 09:40] LABS: HEMOGLOBIN A1C 5.3 % (3.8-5.6)
[2022-05-04 09:46] LABS: FREE T4 (FREE THYROXINE) 1.46 ng/dL (0.76-1.46); THYROID STIMULATING HORMONE 2.74 uIU/mL (0.36-3.74)
[2022-05-04 09:47] LABS: POTASSIUM 2.8 mmol/L (3.5-5.1)
[2022-05-04] MEDS: POTASSIUM CHLORIDE 20 MEQ ER TABLET PO SCH ×2 (11:48→16:06)
[2022-05-05 08:26] VITALS: BP 135/95
[2022-05-05] MEDS: RisperiDONE 3 MG TABLET PO SCH ×2 (08:48→16:18)
[2022-05-05 09:50] LABS: COVID AG,FIA SOURCE NASAL SWAB
[2022-05-05 10:32] LABS: CHOL/HDL RATIO 2.2 (4.2-7.3)
[2022-05-05 16:10] VITALS: BP 139/95
[2022-05-06 08:13] VITALS: BP 142/73
[2022-05-06] MEDS: RisperiDONE 3 MG TABLET PO SCH ×2 (09:08→17:07)
[2022-05-06 14:19] VITALS: BP 138/76
[2022-05-06] MEDS: HALOPERIDOL 5 MG TABLET PO PRN (14:19)
[2022-05-06] MEDS: LORazepam 2 MG TABLET PO PRN (14:19)
[2022-05-06] MEDS: IBUPROFEN 600 MG TABLET PO PRN (14:19)
[2022-05-06 15:19] VITALS: BP 131/98
[2022-05-06 16:38] VITALS: BP 144/91
[2022-05-07 09:14] VITALS: BP 146/98
[2022-05-07] MEDS: RisperiDONE 3 MG TABLET PO SCH ×2 (09:22→16:44)
[2022-05-07] MEDS: LORazepam 2 MG TABLET PO PRN (09:22)
[2022-05-07 16:17] VITALS: BP 128/81
[2022-05-07 20:13] VITALS: BP 130/82
[2022-05-08] MEDS: RisperiDONE 3 MG TABLET PO SCH ×2 (08:39→16:02)
[2022-05-08 09:28] VITALS: BP 155/98
[2022-05-08 16:15] VITALS: BP 139/79
[2022-05-08 20:18] VITALS: BP 132/76
[2022-05-09] MEDS: RisperiDONE 3 MG TABLET PO SCH ×2 (08:01→16:05)
[2022-05-09 09:38] VITALS: BP 137/88
[2022-05-09 16:19] VITALS: BP 135/79
[2022-05-10] MEDS: RisperiDONE 3 MG TABLET PO SCH ×2 (07:58→17:42)
[2022-05-11] MEDS: RisperiDONE 3 MG TABLET PO SCH ×2 (07:34→18:09)
[2022-05-11 08:30] VITALS: BP 135/97
[2022-05-11 16:00] VITALS: BP 140/85
[2022-05-12 06:15] LABS: COVID AG,FIA SOURCE NASAL SWAB
[2022-05-12] MEDS: RisperiDONE 3 MG TABLET PO SCH ×2 (08:12→16:49)
[2022-05-12 08:33] VITALS: BP 125/73
[2022-05-13 08:14] VITALS: BP 137/92
[2022-05-13] MEDS: RisperiDONE 3 MG TABLET PO SCH ×4 (08:42→17:31)
[2022-05-13] MEDS ORDERED: RISP3TAB63 PO (16:10)
[2022-05-13 16:16] VITALS: BP 116/68
== END 2022-05-13 18:15 | disposition home or self-care (01) | DRG 750 ==
LOC: EMS 12:48 → 3EC 20:26
PROVIDERS: ADMIT Psychiatry & Neurology Psychiatry; ATTEND Psychiatry & Neurology Psychiatry
DX: F25.0 Schizoaffective disorder, bipolar type (principal); F10.10 Alcohol abuse, uncomplicated; F15.90 Other stimulant use, unspecified, uncomplicated; F41.9 Anxiety disorder, unspecified; G47.00 Insomnia, unspecified; Z20.822 Contact with and (suspected) exposure to COVID-19; K59.00 Constipation, unspecified; Z79.899 Other long term (current) drug therapy; Z88.8 Allergy status to other drugs, medicaments and biological substances
CPT/HCPCS: 80053; 80061; 80164; 83036; 84132; 84439; 84443; 85025; 99291; G0480; J1200; J1630; J2060; Q0162

== ENCOUNTER 2022-06-15 14:51 | Inpatient (IN) | payer MEDICAID, OTHER ==
[~2022-06-15] VITALS: Ht 160 cm; Wt 58.0 kg
[~2022-06-15 14:51] MED LIST changes: -DIVA-112 PO; -RISP2TAB86 PO; +RISP3TAB63 PO
[2022-06-15] MEDS ORDERED: HALOPERIDOL LACTATE 5 MG/ML VIAL IM ONE (15:45)
[2022-06-15 16:30] LABS: BASOPHILS % (AUTO) 0.3 % (0.0-2.0); EOSINOPHILS % (AUTO) 0.5 % (1.0-6.0); HEMOGLOBIN 12.4 g/dL (13.5-17.5); LYMPHOCYTES # (AUTO) 2.1 K/uL (1.0-4.8); LYMPHOCYTES % (AUTO) 21.2 % (22.0-44.0); MEAN CORPUSCULAR HEMOGLOBIN 28.8 pg (26.0-34.0); MEAN CORPUSCULAR HGB CONC 32.6 G/dL (31.0-37.0); MEAN CORPUSCULAR VOLUME 88 fL (80-100); MONOCYTES # (AUTO) 0.6 K/uL (0.1-1.0); NEUTROPHILS # (AUTO) 7.1 K/uL (1.8-7.7); PLATELET COUNT (AUTO) 278 K/uL (150-450)
[2022-06-15 16:38] LABS: ANION GAP 5 mmol/L (8-16); CALCIUM, TOTAL 9.2 mg/dL (8.8-10.5); CARBON DIOXIDE 29 mmol/L (22-29); CHLORIDE 103 mmol/L (98-107); CREATININE 0.67 mg/dL (0.60-1.30); GLOMERULAR FILTR. RATE CALC > 60 mL/min (>60); GLUCOSE,RANDOM 118 mg/dL (70-110); POTASSIUM 3.4 mmol/L (3.5-5.1); SODIUM SERUM 137 mmol/L (136-145)
[2022-06-15 16:44] LABS: ALANINE AMINOTRANSFERASE 40 U/L (12-78); ALBUMIN 3.7 g/dL (3.4-5.0); ALKALINE PHOSPHATASE 84 U/L (46-116); ASPARTATE AMINOTRANSFERASE 28 U/L (15-37); BILIRUBIN,TOTAL 0.3 mg/dL (0.1-1.0); TOTAL PROTEIN, SERUM 6.9 g/dL (6.4-8.2)
[2022-06-15 17:27] LABS: COVID AG,FIA SOURCE NASAL SWAB
[2022-06-15] MEDS ORDERED: OLANZapine 5 MG RAPDIS TABLET PO PRN (17:30)
[2022-06-15] MEDS ORDERED: LOPERAMIDE HCL 2 MG CAPSULE PO PRN (19:45)
[2022-06-15] MEDS ORDERED: MAGNESIUM HYDROXIDE SUSPENSION 30 ML UDCUP PO PRN (19:45)
[2022-06-15] MEDS ORDERED: TUBERCULIN, PURIFIED PROTEIN DERIVATIVE 5 TU/0.1 ML SYRINGE ID ONE (19:45)
[2022-06-15] MEDS ORDERED: MAG HYDROX/AL HYDROX/SIMETH ES 30 ML SUSPENSION UDCUP PO PRN (19:45)
[2022-06-15] MEDS ORDERED: PROMETHAZINE HCL 25 MG TABLET PO PRN (19:45)
[2022-06-15] MEDS ORDERED: GuaiFENesin/D-METHORPHAN [SUGAR-FREE] 200-20MG/10 ML SYRUP UDCUP PO PRN (19:45)
[2022-06-15] MEDS ORDERED: HydrOXYzine PAMOATE 50 MG CAPSULE PO PRN (19:45)
[2022-06-15] MEDS ORDERED: PALIPERIDONE PALMITATE 234 MG/1.5 ML SYRINGE IM ONE (19:45)
[2022-06-15] MEDS: MELATONIN 5 MG TABLET PO SCH (20:51)
[2022-06-15] MEDS: DIVALPROEX SODIUM 500 MG ER TABLET PO SCH (20:52)
[2022-06-15] MEDS: OLANZapine 5 MG RAPDIS TABLET PO SCH (20:52)
[2022-06-15 22:25] VITALS: BP 120/80
[2022-06-16 06:39] LABS: HEMOGLOBIN A1C 5.2 % (3.8-5.6)
[2022-06-16 06:57] LABS: FREE T4 (FREE THYROXINE) 1.06 ng/dL (0.76-1.46); THYROID STIMULATING HORMONE 0.55 uIU/mL (0.36-3.74)
[2022-06-16 08:06] LABS: POTASSIUM 3.8 mmol/L (3.5-5.1)
[2022-06-16 08:30] VITALS: BP 149/80
[2022-06-16] MEDS: FOLIC ACID 1 MG TABLET PO SCH (09:00)
[2022-06-16] MEDS: THIAMINE 100 MG TABLET PO SCH (09:00)
[2022-06-16] MEDS: NALTREXONE HCL 50 MG TABLET PO SCH (09:00)
[2022-06-16] MEDS: OMEGA-3/DHA/EPA/FISH OIL 1,000 MG CAPSULE PO SCH (09:00)
[2022-06-16] MEDS: MULTIVITAMINS WITH MINERALS, THERAPEUTIC TABLET PO SCH (09:00)
[2022-06-16] MEDS: DIVALPROEX SODIUM 500 MG ER TABLET PO SCH (20:37)
[2022-06-16] MEDS: MELATONIN 5 MG TABLET PO SCH (20:38)
[2022-06-16] MEDS: OLANZapine 5 MG RAPDIS TABLET PO SCH (20:39)
[2022-06-17 08:09] VITALS: BP 146/78
[2022-06-17] MEDS: THIAMINE 100 MG TABLET PO SCH ×2 (08:27→16:46)
[2022-06-17] MEDS: FOLIC ACID 1 MG TABLET PO SCH (08:27)
[2022-06-17] MEDS: OMEGA-3/DHA/EPA/FISH OIL 1,000 MG CAPSULE PO SCH (08:27)
[2022-06-17] MEDS: NALTREXONE HCL 50 MG TABLET PO SCH (08:27)
[2022-06-17] MEDS: MULTIVITAMINS WITH MINERALS, THERAPEUTIC TABLET PO SCH (08:28)
[2022-06-17 16:05] VITALS: BP 146/80
[2022-06-17] MEDS: MELATONIN 5 MG TABLET PO SCH (21:00)
[2022-06-17] MEDS: DIVALPROEX SODIUM 500 MG ER TABLET PO SCH (21:00)
[2022-06-17] MEDS: OLANZapine 5 MG RAPDIS TABLET PO SCH (21:00)
[2022-06-18] MEDS: THIAMINE 100 MG TABLET PO SCH ×2 (09:00→17:00)
[2022-06-18] MEDS: FOLIC ACID 1 MG TABLET PO SCH (09:00)
[2022-06-18] MEDS: NALTREXONE HCL 50 MG TABLET PO SCH (09:00)
[2022-06-18] MEDS: MULTIVITAMINS WITH MINERALS, THERAPEUTIC TABLET PO SCH (09:00)
[2022-06-18] MEDS: OMEGA-3/DHA/EPA/FISH OIL 1,000 MG CAPSULE PO SCH (09:00)
[2022-06-18] MEDS: DIVALPROEX SODIUM 500 MG ER TABLET PO SCH (20:41)
[2022-06-18] MEDS: MELATONIN 5 MG TABLET PO SCH (20:41)
[2022-06-18] MEDS: OLANZapine 5 MG RAPDIS TABLET PO SCH (20:41)
[2022-06-19 08:13] VITALS: BP 133/94
[2022-06-19] MEDS: FOLIC ACID 1 MG TABLET PO SCH (08:33)
[2022-06-19] MEDS: NALTREXONE HCL 50 MG TABLET PO SCH (08:33)
[2022-06-19] MEDS: THIAMINE 100 MG TABLET PO SCH ×2 (08:33→17:00)
[2022-06-19] MEDS: OMEGA-3/DHA/EPA/FISH OIL 1,000 MG CAPSULE PO SCH (08:33)
[2022-06-19] MEDS: MULTIVITAMINS WITH MINERALS, THERAPEUTIC TABLET PO SCH (08:33)
[2022-06-19] MEDS ORDERED: PALIPERIDONE PALMITATE 156 MG/ML SYRINGE IM ONE (09:00)
[2022-06-19 17:13] VITALS: BP 115/86
[2022-06-19 20:27] VITALS: BP 119/79
[2022-06-19] MEDS: MELATONIN 5 MG TABLET PO SCH (21:00)
[2022-06-19] MEDS: OLANZapine 5 MG RAPDIS TABLET PO SCH (21:00)
[2022-06-19] MEDS: DIVALPROEX SODIUM 500 MG ER TABLET PO SCH (21:00)
[2022-06-20 08:12] VITALS: BP 135/88
[2022-06-20] MEDS: OMEGA-3/DHA/EPA/FISH OIL 1,000 MG CAPSULE PO SCH (08:36)
[2022-06-20] MEDS: NALTREXONE HCL 50 MG TABLET PO SCH (08:38)
[2022-06-20] MEDS: MULTIVITAMINS WITH MINERALS, THERAPEUTIC TABLET PO SCH (08:38)
[2022-06-20] MEDS: FOLIC ACID 1 MG TABLET PO SCH (08:38)
[2022-06-20] MEDS: THIAMINE 100 MG TABLET PO SCH ×2 (08:39→17:04)
[2022-06-20 16:04] VITALS: BP 140/86
[2022-06-20] MEDS: MELATONIN 5 MG TABLET PO SCH (21:00)
[2022-06-20] MEDS: DIVALPROEX SODIUM 500 MG ER TABLET PO SCH (21:00)
[2022-06-20] MEDS: OLANZapine 5 MG RAPDIS TABLET PO SCH (21:00)
[2022-06-20 21:15] VITALS: BP 117/72
[2022-06-21 06:57] LABS: COVID AG,FIA SOURCE NASAL SWAB
[2022-06-21] MEDS: FOLIC ACID 1 MG TABLET PO SCH (09:00)
[2022-06-21] MEDS: NALTREXONE HCL 50 MG TABLET PO SCH (09:00)
[2022-06-21] MEDS: THIAMINE 100 MG TABLET PO SCH ×2 (09:00→17:01)
[2022-06-21] MEDS: OMEGA-3/DHA/EPA/FISH OIL 1,000 MG CAPSULE PO SCH (09:00)
[2022-06-21] MEDS: MULTIVITAMINS WITH MINERALS, THERAPEUTIC TABLET PO SCH (09:00)
[2022-06-21 20:02] VITALS: BP 116/78
[2022-06-21] MEDS: OLANZapine 5 MG RAPDIS TABLET PO SCH (20:25)
[2022-06-21] MEDS: MELATONIN 5 MG TABLET PO SCH (20:25)
[2022-06-21] MEDS: DIVALPROEX SODIUM 500 MG ER TABLET PO SCH (20:25)
[2022-06-22 08:11] VITALS: BP 123/78
[2022-06-22] MEDS: FOLIC ACID 1 MG TABLET PO SCH (09:00)
[2022-06-22] MEDS: NALTREXONE HCL 50 MG TABLET PO SCH (09:00)
[2022-06-22] MEDS: MULTIVITAMINS WITH MINERALS, THERAPEUTIC TABLET PO SCH (09:00)
[2022-06-22] MEDS: THIAMINE 100 MG TABLET PO SCH ×2 (09:00→17:00)
[2022-06-22] MEDS: OMEGA-3/DHA/EPA/FISH OIL 1,000 MG CAPSULE PO SCH (09:00)
[2022-06-22 20:40] VITALS: BP 112/72
[2022-06-22] MEDS: MELATONIN 5 MG TABLET PO SCH (21:00)
[2022-06-22] MEDS: DIVALPROEX SODIUM 500 MG ER TABLET PO SCH (21:00)
[2022-06-22] MEDS: OLANZapine 5 MG RAPDIS TABLET PO SCH (21:00)
[2022-06-23 08:37] VITALS: BP 140/113
[2022-06-23] MEDS: OMEGA-3/DHA/EPA/FISH OIL 1,000 MG CAPSULE PO SCH (08:47)
[2022-06-23] MEDS: MULTIVITAMINS WITH MINERALS, THERAPEUTIC TABLET PO SCH (08:47)
[2022-06-23] MEDS: NALTREXONE HCL 50 MG TABLET PO SCH (08:47)
[2022-06-23] MEDS: THIAMINE 100 MG TABLET PO SCH ×2 (08:47→16:13)
[2022-06-23] MEDS: FOLIC ACID 1 MG TABLET PO SCH (08:47)
[2022-06-23 20:34] VITALS: BP 128/96
[2022-06-23] MEDS: OLANZapine 5 MG RAPDIS TABLET PO SCH (21:00)
[2022-06-23] MEDS: DIVALPROEX SODIUM 500 MG ER TABLET PO SCH (21:00)
[2022-06-23] MEDS: MELATONIN 5 MG TABLET PO SCH (21:00)
[2022-06-24 08:13] VITALS: BP 121/78
[2022-06-24] MEDS: THIAMINE 100 MG TABLET PO SCH ×2 (09:11→16:22)
[2022-06-24] MEDS: MULTIVITAMINS WITH MINERALS, THERAPEUTIC TABLET PO SCH (09:11)
[2022-06-24] MEDS: OMEGA-3/DHA/EPA/FISH OIL 1,000 MG CAPSULE PO SCH (09:11)
[2022-06-24] MEDS: NALTREXONE HCL 50 MG TABLET PO SCH (09:11)
[2022-06-24] MEDS: FOLIC ACID 1 MG TABLET PO SCH (09:12)
[2022-06-24] MEDS: DIVALPROEX SODIUM 500 MG ER TABLET PO SCH (20:47)
[2022-06-24] MEDS: OLANZapine 5 MG RAPDIS TABLET PO SCH (20:47)
[2022-06-24] MEDS: MELATONIN 5 MG TABLET PO SCH (20:47)
[2022-06-25] MEDS: NALTREXONE HCL 50 MG TABLET PO SCH (08:18)
[2022-06-25] MEDS: MULTIVITAMINS WITH MINERALS, THERAPEUTIC TABLET PO SCH (08:18)
[2022-06-25] MEDS: THIAMINE 100 MG TABLET PO SCH ×2 (08:18→16:35)
[2022-06-25] MEDS: FOLIC ACID 1 MG TABLET PO SCH (08:19)
[2022-06-25] MEDS: OMEGA-3/DHA/EPA/FISH OIL 1,000 MG CAPSULE PO SCH (08:19)
[2022-06-25 09:50] VITALS: BP 154/96
[2022-06-25 16:27] VITALS: BP 131/75
[2022-06-25] MEDS: MELATONIN 5 MG TABLET PO SCH (21:00)
[2022-06-26 08:02] VITALS: BP 137/97
[2022-06-26] MEDS: MULTIVITAMINS WITH MINERALS, THERAPEUTIC TABLET PO SCH (09:11)
[2022-06-26] MEDS: DIVALPROEX SODIUM 500 MG ER TABLET PO SCH (09:12)
[2022-06-26] MEDS: OMEGA-3/DHA/EPA/FISH OIL 1,000 MG CAPSULE PO SCH (09:12)
[2022-06-26] MEDS: NALTREXONE HCL 50 MG TABLET PO SCH (09:12)
[2022-06-26] MEDS: OLANZapine 5 MG RAPDIS TABLET PO SCH (09:12)
[2022-06-26 16:06] VITALS: BP 124/78
[2022-06-26] MEDS: MELATONIN 5 MG TABLET PO SCH (20:05)
[2022-06-26 20:27] VITALS: BP 124/86
[2022-06-27] MEDS: OMEGA-3/DHA/EPA/FISH OIL 1,000 MG CAPSULE PO SCH (08:01)
[2022-06-27] MEDS: NALTREXONE HCL 50 MG TABLET PO SCH (08:01)
[2022-06-27] MEDS: DIVALPROEX SODIUM 500 MG ER TABLET PO SCH (08:01)
[2022-06-27] MEDS: MULTIVITAMINS WITH MINERALS, THERAPEUTIC TABLET PO SCH (08:01)
[2022-06-27] MEDS: OLANZapine 5 MG RAPDIS TABLET PO SCH (08:02)
[2022-06-27 16:05] VITALS: BP 126/85
[2022-06-27] MEDS: MELATONIN 5 MG TABLET PO SCH (20:41)
[2022-06-28] MEDS: DIVALPROEX SODIUM 500 MG ER TABLET PO SCH (09:04)
[2022-06-28] MEDS: OMEGA-3/DHA/EPA/FISH OIL 1,000 MG CAPSULE PO SCH (09:05)
[2022-06-28] MEDS: MULTIVITAMINS WITH MINERALS, THERAPEUTIC TABLET PO SCH (09:05)
[2022-06-28] MEDS: OLANZapine 5 MG RAPDIS TABLET PO SCH (09:05)
[2022-06-28] MEDS: NALTREXONE HCL 50 MG TABLET PO SCH (09:05)
[2022-06-28 10:54] LABS: COVID AG,FIA SOURCE NASAL SWAB
[2022-06-28 16:12] VITALS: BP 124/84
[2022-06-28] MEDS: MELATONIN 5 MG TABLET PO SCH (20:11)
[2022-06-29 09:00] VITALS: BP 130/78
[2022-06-29] MEDS: DIVALPROEX SODIUM 500 MG ER TABLET PO SCH (09:00)
[2022-06-29] MEDS: MULTIVITAMINS WITH MINERALS, THERAPEUTIC TABLET PO SCH (12:44)
[2022-06-29] MEDS: OMEGA-3/DHA/EPA/FISH OIL 1,000 MG CAPSULE PO SCH (12:45)
[2022-06-29] MEDS: NALTREXONE HCL 50 MG TABLET PO SCH (12:46)
[2022-06-29] MEDS: OLANZapine 5 MG RAPDIS TABLET PO SCH (12:48)
[2022-06-29] MEDS: MELATONIN 5 MG TABLET PO SCH (20:23)
[2022-06-29 21:49] VITALS: BP 122/63
[2022-06-29] MEDS: ACETAMINOPHEN 325 MG TABLET PO PRN (21:52)
[2022-06-30 08:39] VITALS: BP 114/82
[2022-06-30] MEDS: OMEGA-3/DHA/EPA/FISH OIL 1,000 MG CAPSULE PO SCH (08:52)
[2022-06-30] MEDS: MULTIVITAMINS WITH MINERALS, THERAPEUTIC TABLET PO SCH (08:53)
[2022-06-30] MEDS: OLANZapine 5 MG RAPDIS TABLET PO SCH (08:53)
[2022-06-30] MEDS: DIVALPROEX SODIUM 500 MG ER TABLET PO SCH (08:56)
[2022-06-30] MEDS: NALTREXONE HCL 50 MG TABLET PO SCH (12:49)
[2022-06-30 17:10] VITALS: BP 121/70
[2022-06-30 20:08] VITALS: BP 110/70
[2022-06-30] MEDS: MELATONIN 5 MG TABLET PO SCH (20:14)
[2022-07-01] MEDS: OMEGA-3/DHA/EPA/FISH OIL 1,000 MG CAPSULE PO SCH (08:13)
[2022-07-01] MEDS: MULTIVITAMINS WITH MINERALS, THERAPEUTIC TABLET PO SCH (08:13)
[2022-07-01] MEDS: NALTREXONE HCL 50 MG TABLET PO SCH (08:13)
[2022-07-01] MEDS: DIVALPROEX SODIUM 500 MG ER TABLET PO SCH (08:14)
[2022-07-01] MEDS: OLANZapine 10 MG RAPDIS TABLET PO SCH (08:14)
[2022-07-01 16:42] VITALS: BP 126/86
[2022-07-01] MEDS: MELATONIN 5 MG TABLET PO SCH (21:34)
[2022-07-02] MEDS: DIVALPROEX SODIUM 500 MG ER TABLET PO SCH (08:39)
[2022-07-02] MEDS: NALTREXONE HCL 50 MG TABLET PO SCH (08:39)
[2022-07-02] MEDS: OLANZapine 10 MG RAPDIS TABLET PO SCH (08:39)
[2022-07-02] MEDS: OMEGA-3/DHA/EPA/FISH OIL 1,000 MG CAPSULE PO SCH (08:39)
[2022-07-02] MEDS: MULTIVITAMINS WITH MINERALS, THERAPEUTIC TABLET PO SCH (08:39)
[2022-07-02 16:35] VITALS: BP 94/60
[2022-07-02 20:42] VITALS: BP 107/66
[2022-07-02] MEDS: MELATONIN 5 MG TABLET PO SCH (21:24)
[2022-07-03] MEDS: DIVALPROEX SODIUM 500 MG ER TABLET PO SCH (08:01)
[2022-07-03] MEDS: OMEGA-3/DHA/EPA/FISH OIL 1,000 MG CAPSULE PO SCH (08:01)
[2022-07-03] MEDS: MULTIVITAMINS WITH MINERALS, THERAPEUTIC TABLET PO SCH (08:01)
[2022-07-03] MEDS: NALTREXONE HCL 50 MG TABLET PO SCH (08:01)
[2022-07-03] MEDS: OLANZapine 10 MG RAPDIS TABLET PO SCH (08:02)
[2022-07-03 16:05] VITALS: BP 115/75
[2022-07-03] MEDS: MELATONIN 5 MG TABLET PO SCH (20:30)
[2022-07-03 20:53] VITALS: BP 121/78
[2022-07-04] MEDS: MULTIVITAMINS WITH MINERALS, THERAPEUTIC TABLET PO SCH (09:36)
[2022-07-04] MEDS: OMEGA-3/DHA/EPA/FISH OIL 1,000 MG CAPSULE PO SCH (09:36)
[2022-07-04] MEDS: DIVALPROEX SODIUM 500 MG ER TABLET PO SCH (09:36)
[2022-07-04] MEDS: NALTREXONE HCL 50 MG TABLET PO SCH (09:36)
[2022-07-04] MEDS: OLANZapine 10 MG RAPDIS TABLET PO SCH (09:36)
[2022-07-04 10:33] VITALS: BP 113/76
[2022-07-04 16:02] VITALS: BP 125/79
[2022-07-04 20:24] VITALS: BP 131/82
[2022-07-04] MEDS: MELATONIN 5 MG TABLET PO SCH (21:07)
[2022-07-05 01:36] LABS: COVID AG,FIA SOURCE NASAL SWAB
[2022-07-05] MEDS: NALTREXONE HCL 50 MG TABLET PO SCH (08:57)
[2022-07-05] MEDS: DIVALPROEX SODIUM 500 MG ER TABLET PO SCH (08:57)
[2022-07-05] MEDS: OMEGA-3/DHA/EPA/FISH OIL 1,000 MG CAPSULE PO SCH (08:58)
[2022-07-05] MEDS: MULTIVITAMINS WITH MINERALS, THERAPEUTIC TABLET PO SCH (08:58)
[2022-07-05] MEDS: OLANZapine 10 MG RAPDIS TABLET PO SCH (08:58)
[2022-07-05 16:00] VITALS: BP 105/68
[2022-07-05 20:23] VITALS: BP 136/84
[2022-07-05] MEDS: MELATONIN 5 MG TABLET PO SCH (21:20)
[2022-07-06 04:11] VITALS: BP 118/76
[2022-07-06] MEDS: ACETAMINOPHEN 325 MG TABLET PO PRN (04:14)
[2022-07-06] MEDS: MULTIVITAMINS WITH MINERALS, THERAPEUTIC TABLET PO SCH (09:00)
[2022-07-06] MEDS: OLANZapine 10 MG RAPDIS TABLET PO SCH (09:00)
[2022-07-06] MEDS: OMEGA-3/DHA/EPA/FISH OIL 1,000 MG CAPSULE PO SCH (09:00)
[2022-07-06] MEDS: DIVALPROEX SODIUM 500 MG ER TABLET PO SCH (09:00)
[2022-07-06] MEDS: NALTREXONE HCL 50 MG TABLET PO SCH (09:00)
[2022-07-06 20:19] VITALS: BP 109/72
[2022-07-06] MEDS: MELATONIN 5 MG TABLET PO SCH (20:40)
[2022-07-07] MEDS: OMEGA-3/DHA/EPA/FISH OIL 1,000 MG CAPSULE PO SCH (09:00)
[2022-07-07] MEDS: NALTREXONE HCL 50 MG TABLET PO SCH (09:00)
[2022-07-07] MEDS: MULTIVITAMINS WITH MINERALS, THERAPEUTIC TABLET PO SCH (09:00)
[2022-07-07] MEDS: OLANZapine 10 MG RAPDIS TABLET PO SCH (09:00)
[2022-07-07] MEDS: DIVALPROEX SODIUM 500 MG ER TABLET PO SCH (09:00)
[2022-07-07 09:13] VITALS: BP 119/71
[2022-07-07 17:33] VITALS: BP 114/73
[2022-07-07] MEDS: MELATONIN 5 MG TABLET PO SCH (20:51)
[2022-07-07] MEDS: ZOLPIDEM TARTRATE 10 MG TABLET PO PRN (22:17)
[2022-07-08] MEDS: DIVALPROEX SODIUM 500 MG ER TABLET PO SCH (08:04)
[2022-07-08] MEDS: OMEGA-3/DHA/EPA/FISH OIL 1,000 MG CAPSULE PO SCH (08:04)
[2022-07-08] MEDS: MULTIVITAMINS WITH MINERALS, THERAPEUTIC TABLET PO SCH (08:04)
[2022-07-08] MEDS: NALTREXONE HCL 50 MG TABLET PO SCH (08:04)
[2022-07-08] MEDS: OLANZapine 10 MG RAPDIS TABLET PO SCH (08:05)
[2022-07-08 08:55] VITALS: BP 120/76
[2022-07-08 16:26] VITALS: BP 101/70
[2022-07-08] MEDS ORDERED: TUBERCULIN, PURIFIED PROTEIN DERIVATIVE 5 TU/0.1 ML SYRINGE ID ONE (17:30)
[2022-07-08 17:33] VITALS: BP 106/68
[2022-07-08] MEDS: ACETAMINOPHEN 325 MG TABLET PO PRN (17:33)
[2022-07-08] MEDS: ZOLPIDEM TARTRATE 10 MG TABLET PO PRN (20:25)
[2022-07-08] MEDS: MELATONIN 5 MG TABLET PO SCH (20:49)
[2022-07-08] MEDS: LORazepam 2 MG TABLET PO PRN (22:17)
[2022-07-09] MEDS: MULTIVITAMINS WITH MINERALS, THERAPEUTIC TABLET PO SCH (09:04)
[2022-07-09] MEDS: OMEGA-3/DHA/EPA/FISH OIL 1,000 MG CAPSULE PO SCH (09:04)
[2022-07-09] MEDS: DIVALPROEX SODIUM 500 MG ER TABLET PO SCH (09:04)
[2022-07-09] MEDS: OLANZapine 10 MG RAPDIS TABLET PO SCH (09:05)
[2022-07-09] MEDS: NALTREXONE HCL 50 MG TABLET PO SCH (09:10)
[2022-07-09] MEDS: MELATONIN 5 MG TABLET PO SCH (21:17)
[2022-07-09] MEDS ORDERED: OLAN10TA26 PO (21:21)
[2022-07-09] MEDS ORDERED: NALT50TA6 PO (21:21)
[2022-07-09] MEDS ORDERED: DIVA500T69 PO (21:21)
[2022-07-09] MEDS ORDERED: MELA5TAB40 PO (21:21)
[2022-07-09] MEDS: ZOLPIDEM TARTRATE 10 MG TABLET PO PRN (22:22)
[2022-07-10] MEDS: LORazepam 2 MG TABLET PO PRN ×2 (00:04→22:07)
[2022-07-10] MEDS: OMEGA-3/DHA/EPA/FISH OIL 1,000 MG CAPSULE PO SCH (08:03)
[2022-07-10] MEDS: NALTREXONE HCL 50 MG TABLET PO SCH (08:04)
[2022-07-10] MEDS: OLANZapine 10 MG RAPDIS TABLET PO SCH (08:04)
[2022-07-10] MEDS: MULTIVITAMINS WITH MINERALS, THERAPEUTIC TABLET PO SCH (08:04)
[2022-07-10] MEDS: DIVALPROEX SODIUM 500 MG ER TABLET PO SCH (08:04)
[2022-07-10 11:19] VITALS: BP 138/79
[2022-07-10] MEDS: ACETAMINOPHEN 325 MG TABLET PO PRN (11:19)
[2022-07-10 16:20] VITALS: BP 131/92
[2022-07-10 20:49] VITALS: BP 130/84
[2022-07-10] MEDS: MELATONIN 5 MG TABLET PO SCH (21:02)
[2022-07-10] MEDS: ZOLPIDEM TARTRATE 10 MG TABLET PO PRN (22:07)
[2022-07-11] MEDS: OMEGA-3/DHA/EPA/FISH OIL 1,000 MG CAPSULE PO SCH (09:00)
[2022-07-11] MEDS: OLANZapine 10 MG RAPDIS TABLET PO SCH (09:00)
[2022-07-11] MEDS: DIVALPROEX SODIUM 500 MG ER TABLET PO SCH (09:00)
[2022-07-11] MEDS: NALTREXONE HCL 50 MG TABLET PO SCH (09:00)
[2022-07-11] MEDS: MULTIVITAMINS WITH MINERALS, THERAPEUTIC TABLET PO SCH (09:00)
[2022-07-11 16:04] VITALS: BP 127/89
[2022-07-11] MEDS: MELATONIN 5 MG TABLET PO SCH (20:25)
[2022-07-11 20:28] VITALS: BP 16/86
[2022-07-12 05:02] LABS: COVID AG,FIA SOURCE NASAL SWAB
[2022-07-12 08:30] VITALS: BP 109/76
[2022-07-12] MEDS: OMEGA-3/DHA/EPA/FISH OIL 1,000 MG CAPSULE PO SCH (09:00)
[2022-07-12] MEDS: MULTIVITAMINS WITH MINERALS, THERAPEUTIC TABLET PO SCH (09:00)
[2022-07-12] MEDS: OLANZapine 10 MG RAPDIS TABLET PO SCH (09:00)
[2022-07-12] MEDS: NALTREXONE HCL 50 MG TABLET PO SCH (09:00)
[2022-07-12] MEDS: DIVALPROEX SODIUM 500 MG ER TABLET PO SCH (09:00)
[2022-07-12 17:55] VITALS: BP 99/69
[2022-07-12] MEDS: MELATONIN 5 MG TABLET PO SCH (20:35)
[2022-07-12 20:52] VITALS: BP 129/79
[2022-07-12] MEDS: ZOLPIDEM TARTRATE 10 MG TABLET PO PRN (21:37)
[2022-07-13] MEDS: DIVALPROEX SODIUM 500 MG ER TABLET PO SCH (07:55)
[2022-07-13] MEDS: MULTIVITAMINS WITH MINERALS, THERAPEUTIC TABLET PO SCH (07:55)
[2022-07-13] MEDS: OLANZapine 10 MG RAPDIS TABLET PO SCH (07:55)
[2022-07-13] MEDS: OMEGA-3/DHA/EPA/FISH OIL 1,000 MG CAPSULE PO SCH (07:55)
[2022-07-13] MEDS: NALTREXONE HCL 50 MG TABLET PO SCH (07:56)
[2022-07-13 08:30] VITALS: BP 123/80
[2022-07-13] MEDS: MELATONIN 5 MG TABLET PO SCH (20:53)
[2022-07-14] MEDS: ZOLPIDEM TARTRATE 10 MG TABLET PO PRN ×2 (00:37→21:09)
[2022-07-14] MEDS: DIVALPROEX SODIUM 500 MG ER TABLET PO SCH (09:00)
[2022-07-14] MEDS: MULTIVITAMINS WITH MINERALS, THERAPEUTIC TABLET PO SCH (09:00)
[2022-07-14] MEDS: OLANZapine 10 MG RAPDIS TABLET PO SCH (09:00)
[2022-07-14] MEDS: OMEGA-3/DHA/EPA/FISH OIL 1,000 MG CAPSULE PO SCH (09:00)
[2022-07-14] MEDS: NALTREXONE HCL 50 MG TABLET PO SCH (09:00)
[2022-07-14 17:07] VITALS: BP 124/68
[2022-07-14 20:36] VITALS: BP 125/70
[2022-07-14] MEDS: MELATONIN 5 MG TABLET PO SCH (20:55)
[2022-07-14] MEDS ORDERED: HALOPERIDOL LACTATE 5 MG/ML VIAL IM PRN (22:00)
[2022-07-15] MEDS: OLANZapine 10 MG RAPDIS TABLET PO SCH (09:00)
[2022-07-15] MEDS: MULTIVITAMINS WITH MINERALS, THERAPEUTIC TABLET PO SCH (09:00)
[2022-07-15] MEDS: NALTREXONE HCL 50 MG TABLET PO SCH (09:00)
[2022-07-15] MEDS: DIVALPROEX SODIUM 500 MG ER TABLET PO SCH (09:00)
[2022-07-15] MEDS: OMEGA-3/DHA/EPA/FISH OIL 1,000 MG CAPSULE PO SCH (09:00)
[2022-07-15 09:06] VITALS: BP 103/66
[2022-07-15] MEDS: ACETAMINOPHEN 325 MG TABLET PO PRN (10:17)
[2022-07-15 16:17] VITALS: BP 119/82
[2022-07-15] MEDS: MELATONIN 5 MG TABLET PO SCH (20:35)
[2022-07-15 20:47] VITALS: BP 105/60
[2022-07-15] MEDS: ZOLPIDEM TARTRATE 10 MG TABLET PO PRN (21:16)
[2022-07-16 08:29] VITALS: BP 105/65
[2022-07-16] MEDS: DIVALPROEX SODIUM 500 MG ER TABLET PO SCH ×2 (09:00→10:21)
[2022-07-16] MEDS: OMEGA-3/DHA/EPA/FISH OIL 1,000 MG CAPSULE PO SCH ×2 (09:00→10:21)
[2022-07-16] MEDS: NALTREXONE HCL 50 MG TABLET PO SCH ×2 (09:00→10:21)
[2022-07-16] MEDS: MULTIVITAMINS WITH MINERALS, THERAPEUTIC TABLET PO SCH ×2 (09:00→10:21)
[2022-07-16] MEDS: OLANZapine 10 MG RAPDIS TABLET PO SCH ×2 (09:00→10:21)
[2022-07-16 16:08] VITALS: BP 99/59
[2022-07-16 19:47] VITALS: BP 108/70
[2022-07-16] MEDS: ACETAMINOPHEN 325 MG TABLET PO PRN (19:51)
[2022-07-16] MEDS: MELATONIN 5 MG TABLET PO SCH (20:06)
[2022-07-17] MEDS: ZOLPIDEM TARTRATE 10 MG TABLET PO PRN ×2 (00:40→23:02)
[2022-07-17] MEDS: DIVALPROEX SODIUM 500 MG ER TABLET PO SCH (08:30)
[2022-07-17] MEDS: MULTIVITAMINS WITH MINERALS, THERAPEUTIC TABLET PO SCH (08:30)
[2022-07-17] MEDS: OLANZapine 10 MG RAPDIS TABLET PO SCH (08:30)
[2022-07-17] MEDS: NALTREXONE HCL 50 MG TABLET PO SCH (08:30)
[2022-07-17] MEDS: OMEGA-3/DHA/EPA/FISH OIL 1,000 MG CAPSULE PO SCH (08:30)
[2022-07-17 08:35] VITALS: BP 130/80
[2022-07-17] MEDS: ACETAMINOPHEN 325 MG TABLET PO PRN (14:27)
[2022-07-17 16:19] VITALS: BP 104/62
[2022-07-17] MEDS: MELATONIN 5 MG TABLET PO SCH (20:32)
[2022-07-17 20:49] VITALS: BP 124/76
[2022-07-18] MEDS: DIVALPROEX SODIUM 500 MG ER TABLET PO SCH (08:24)
[2022-07-18] MEDS: OMEGA-3/DHA/EPA/FISH OIL 1,000 MG CAPSULE PO SCH (08:24)
[2022-07-18] MEDS: OLANZapine 10 MG RAPDIS TABLET PO SCH (08:24)
[2022-07-18] MEDS: MULTIVITAMINS WITH MINERALS, THERAPEUTIC TABLET PO SCH (08:24)
[2022-07-18] MEDS: NALTREXONE HCL 50 MG TABLET PO SCH (08:24)
[2022-07-18 13:29] VITALS: BP 110/70
[2022-07-18] MEDS: ACETAMINOPHEN 325 MG TABLET PO PRN (13:29)
[2022-07-18 16:58] VITALS: BP 103/60
[2022-07-18 20:26] VITALS: BP 120/85
[2022-07-18] MEDS: MELATONIN 5 MG TABLET PO SCH (21:15)
[2022-07-18] MEDS: ZOLPIDEM TARTRATE 10 MG TABLET PO PRN (22:20)
[2022-07-19 06:48] LABS: COVID AG,FIA SOURCE NASAL SWAB
[2022-07-19] MEDS: MULTIVITAMINS WITH MINERALS, THERAPEUTIC TABLET PO SCH (08:09)
[2022-07-19] MEDS: DIVALPROEX SODIUM 500 MG ER TABLET PO SCH (08:09)
[2022-07-19] MEDS: OLANZapine 10 MG RAPDIS TABLET PO SCH (08:09)
[2022-07-19] MEDS: OMEGA-3/DHA/EPA/FISH OIL 1,000 MG CAPSULE PO SCH (08:09)
[2022-07-19] MEDS: NALTREXONE HCL 50 MG TABLET PO SCH (08:09)
[2022-07-19 13:46] VITALS: BP 136/78
[2022-07-19] MEDS: ACETAMINOPHEN 325 MG TABLET PO PRN (13:46)
[2022-07-19 16:35] VITALS: BP 99/55
[2022-07-19] MEDS: MELATONIN 5 MG TABLET PO SCH (20:12)
[2022-07-19] MEDS: ZOLPIDEM TARTRATE 10 MG TABLET PO PRN (21:54)
[2022-07-20] MEDS: DIVALPROEX SODIUM 500 MG ER TABLET PO SCH (09:00)
[2022-07-20] MEDS: NALTREXONE HCL 50 MG TABLET PO SCH (09:00)
[2022-07-20] MEDS: OMEGA-3/DHA/EPA/FISH OIL 1,000 MG CAPSULE PO SCH (09:00)
[2022-07-20] MEDS: OLANZapine 10 MG RAPDIS TABLET PO SCH (09:00)
[2022-07-20] MEDS: MULTIVITAMINS WITH MINERALS, THERAPEUTIC TABLET PO SCH (09:00)
[2022-07-20 16:02] VITALS: BP 105/64
[2022-07-20] MEDS: MELATONIN 5 MG TABLET PO SCH (20:04)
[2022-07-20 20:25] VITALS: BP 115/75
[2022-07-20] MEDS: ZOLPIDEM TARTRATE 10 MG TABLET PO PRN (21:30)
[2022-07-21] MEDS: OMEGA-3/DHA/EPA/FISH OIL 1,000 MG CAPSULE PO SCH (08:13)
[2022-07-21] MEDS: MULTIVITAMINS WITH MINERALS, THERAPEUTIC TABLET PO SCH (08:13)
[2022-07-21] MEDS: DIVALPROEX SODIUM 500 MG ER TABLET PO SCH (08:13)
[2022-07-21] MEDS: OLANZapine 10 MG RAPDIS TABLET PO SCH (08:13)
[2022-07-21] MEDS: NALTREXONE HCL 50 MG TABLET PO SCH (08:13)
[2022-07-21 14:17] VITALS: BP 108/65
[2022-07-21] MEDS: ACETAMINOPHEN 325 MG TABLET PO PRN ×2 (14:17→23:09)
[2022-07-21 15:17] VITALS: BP 109/68
[2022-07-21 16:10] VITALS: BP 109/68
[2022-07-21] MEDS: MELATONIN 5 MG TABLET PO SCH (20:29)
[2022-07-21 21:28] VITALS: BP 110/75
[2022-07-21] MEDS: ZOLPIDEM TARTRATE 10 MG TABLET PO PRN (21:35)
[2022-07-21 23:09] VITALS: BP 113/64
[2022-07-22 08:07] VITALS: BP 138/76
[2022-07-22] MEDS: DIVALPROEX SODIUM 500 MG ER TABLET PO SCH (09:38)
[2022-07-22] MEDS: OMEGA-3/DHA/EPA/FISH OIL 1,000 MG CAPSULE PO SCH (09:38)
[2022-07-22] MEDS: NALTREXONE HCL 50 MG TABLET PO SCH (09:38)
[2022-07-22] MEDS: OLANZapine 10 MG RAPDIS TABLET PO SCH (09:38)
[2022-07-22] MEDS: MULTIVITAMINS WITH MINERALS, THERAPEUTIC TABLET PO SCH (09:38)
[2022-07-22 14:57] VITALS: BP 134/78
[2022-07-22] MEDS: ACETAMINOPHEN 325 MG TABLET PO PRN (14:57)
[2022-07-22 18:15] VITALS: BP 128/74
[2022-07-22] MEDS: IBUPROFEN 600 MG TABLET PO PRN (18:15)
[2022-07-22] MEDS: MELATONIN 5 MG TABLET PO SCH (20:10)
[2022-07-22] MEDS: ZOLPIDEM TARTRATE 10 MG TABLET PO PRN (21:27)
[2022-07-23] MEDS: OMEGA-3/DHA/EPA/FISH OIL 1,000 MG CAPSULE PO SCH (08:42)
[2022-07-23] MEDS: NALTREXONE HCL 50 MG TABLET PO SCH (08:43)
[2022-07-23] MEDS: MULTIVITAMINS WITH MINERALS, THERAPEUTIC TABLET PO SCH (08:43)
[2022-07-23] MEDS: OLANZapine 10 MG RAPDIS TABLET PO SCH (08:43)
[2022-07-23] MEDS: DIVALPROEX SODIUM 500 MG ER TABLET PO SCH (08:43)
[2022-07-23 17:16] VITALS: BP 126/74
[2022-07-23] MEDS: IBUPROFEN 600 MG TABLET PO PRN (17:16)
[2022-07-23] MEDS: MELATONIN 5 MG TABLET PO SCH (20:01)
[2022-07-23 20:16] VITALS: BP 119/71
[2022-07-23] MEDS: ZOLPIDEM TARTRATE 10 MG TABLET PO PRN (21:08)
[2022-07-24] MEDS: OMEGA-3/DHA/EPA/FISH OIL 1,000 MG CAPSULE PO SCH (08:13)
[2022-07-24] MEDS: OLANZapine 10 MG RAPDIS TABLET PO SCH (08:13)
[2022-07-24] MEDS: MULTIVITAMINS WITH MINERALS, THERAPEUTIC TABLET PO SCH (08:13)
[2022-07-24] MEDS: NALTREXONE HCL 50 MG TABLET PO SCH (08:13)
[2022-07-24] MEDS: DIVALPROEX SODIUM 500 MG ER TABLET PO SCH (08:13)
[2022-07-24 08:20] VITALS: BP 100/60
[2022-07-24 12:52] VITALS: BP 112/64
[2022-07-24] MEDS: IBUPROFEN 600 MG TABLET PO PRN (12:52)
[2022-07-24] MEDS: MELATONIN 5 MG TABLET PO SCH (20:13)
[2022-07-24] MEDS: ZOLPIDEM TARTRATE 10 MG TABLET PO PRN (21:26)
[2022-07-25] MEDS: DIVALPROEX SODIUM 500 MG ER TABLET PO SCH ×3 (08:07→12:46)
[2022-07-25] MEDS: OMEGA-3/DHA/EPA/FISH OIL 1,000 MG CAPSULE PO SCH ×3 (08:07→12:46)
[2022-07-25] MEDS: OLANZapine 10 MG RAPDIS TABLET PO SCH ×3 (08:07→12:47)
[2022-07-25] MEDS: NALTREXONE HCL 50 MG TABLET PO SCH ×3 (08:08→12:47)
[2022-07-25] MEDS: MULTIVITAMINS WITH MINERALS, THERAPEUTIC TABLET PO SCH ×3 (08:08→12:46)
[2022-07-25 08:18] VITALS: BP 119/68
[2022-07-25 17:19] VITALS: BP 126/68
[2022-07-25] MEDS: IBUPROFEN 600 MG TABLET PO PRN (17:19)
[2022-07-25] MEDS: MELATONIN 5 MG TABLET PO SCH (21:01)
[2022-07-25] MEDS: ZOLPIDEM TARTRATE 10 MG TABLET PO PRN (21:55)
[2022-07-26] MEDS: NALTREXONE HCL 50 MG TABLET PO SCH (09:02)
[2022-07-26] MEDS: OMEGA-3/DHA/EPA/FISH OIL 1,000 MG CAPSULE PO SCH (09:02)
[2022-07-26] MEDS: OLANZapine 10 MG RAPDIS TABLET PO SCH (09:02)
[2022-07-26] MEDS: MULTIVITAMINS WITH MINERALS, THERAPEUTIC TABLET PO SCH (09:02)
[2022-07-26] MEDS: DIVALPROEX SODIUM 500 MG ER TABLET PO SCH (09:02)
[2022-07-26 09:26] VITALS: BP 104/69
[2022-07-26 13:11] VITALS: BP 111/73
[2022-07-26] MEDS: IBUPROFEN 600 MG TABLET PO PRN (13:11)
[2022-07-26 14:11] VITALS: BP 111/71
[2022-07-26 20:44] VITALS: BP 115/70
[2022-07-26] MEDS: MELATONIN 5 MG TABLET PO SCH (20:50)
[2022-07-26] MEDS: ZOLPIDEM TARTRATE 10 MG TABLET PO PRN (21:44)
[2022-07-27 09:46] VITALS: BP 102/66
[2022-07-27] MEDS: DIVALPROEX SODIUM 500 MG ER TABLET PO SCH (12:14)
[2022-07-27] MEDS: OLANZapine 10 MG RAPDIS TABLET PO SCH (12:15)
[2022-07-27] MEDS: MULTIVITAMINS WITH MINERALS, THERAPEUTIC TABLET PO SCH (12:16)
[2022-07-27] MEDS: OMEGA-3/DHA/EPA/FISH OIL 1,000 MG CAPSULE PO SCH (12:16)
[2022-07-27] MEDS: NALTREXONE HCL 50 MG TABLET PO SCH (12:16)
[2022-07-27] MEDS: IBUPROFEN 600 MG TABLET PO PRN (14:52)
[2022-07-27 14:53] VITALS: BP 115/65
[2022-07-27 15:31] VITALS: BP 118/71
[2022-07-27] MEDS: MELATONIN 5 MG TABLET PO SCH (20:31)
[2022-07-27] MEDS: ZOLPIDEM TARTRATE 10 MG TABLET PO PRN (21:15)
[2022-07-28] MEDS: DIVALPROEX SODIUM 500 MG ER TABLET PO SCH (11:52)
[2022-07-28] MEDS: OLANZapine 10 MG RAPDIS TABLET PO SCH (11:52)
[2022-07-28] MEDS: NALTREXONE HCL 50 MG TABLET PO SCH (11:53)
[2022-07-28] MEDS: OMEGA-3/DHA/EPA/FISH OIL 1,000 MG CAPSULE PO SCH (11:53)
[2022-07-28] MEDS: MULTIVITAMINS WITH MINERALS, THERAPEUTIC TABLET PO SCH (11:53)
[2022-07-28 20:29] VITALS: BP 116/82
[2022-07-28] MEDS: MELATONIN 5 MG TABLET PO SCH (21:02)
[2022-07-28] MEDS: ZOLPIDEM TARTRATE 10 MG TABLET PO PRN (21:17)
[2022-07-29 09:16] VITALS: BP 129/76
[2022-07-29] MEDS: NALTREXONE HCL 50 MG TABLET PO SCH (10:09)
[2022-07-29] MEDS: OMEGA-3/DHA/EPA/FISH OIL 1,000 MG CAPSULE PO SCH (10:11)
[2022-07-29] MEDS: OLANZapine 10 MG RAPDIS TABLET PO SCH (10:11)
[2022-07-29] MEDS: DIVALPROEX SODIUM 500 MG ER TABLET PO SCH (10:11)
[2022-07-29] MEDS: MULTIVITAMINS WITH MINERALS, THERAPEUTIC TABLET PO SCH (10:11)
[2022-07-29 15:26] VITALS: BP 117/81
[2022-07-29] MEDS: IBUPROFEN 600 MG TABLET PO PRN (15:26)
[2022-07-29 20:23] VITALS: BP 121/77
[2022-07-29 20:24] VITALS: BP 121/77
[2022-07-29] MEDS: MELATONIN 5 MG TABLET PO SCH (21:05)
[2022-07-30] MEDS: ZOLPIDEM TARTRATE 10 MG TABLET PO PRN
[2022-07-30] MEDS: NALTREXONE HCL 50 MG TABLET PO SCH (09:38)
[2022-07-30] MEDS: DIVALPROEX SODIUM 500 MG ER TABLET PO SCH (09:39)
[2022-07-30] MEDS: MULTIVITAMINS WITH MINERALS, THERAPEUTIC TABLET PO SCH (09:39)
[2022-07-30] MEDS: OLANZapine 10 MG RAPDIS TABLET PO SCH (09:40)
[2022-07-30] MEDS: OMEGA-3/DHA/EPA/FISH OIL 1,000 MG CAPSULE PO SCH (09:40)
[2022-07-30] MEDS: IBUPROFEN 600 MG TABLET PO PRN (11:56)
[2022-07-30 12:56] VITALS: BP 131/82
[2022-07-30 20:40] VITALS: BP 105/61
[2022-07-30] MEDS: MELATONIN 5 MG TABLET PO SCH (20:40)
[2022-07-31] MEDS: OLANZapine 10 MG RAPDIS TABLET PO SCH (07:57)
[2022-07-31] MEDS: OMEGA-3/DHA/EPA/FISH OIL 1,000 MG CAPSULE PO SCH (07:57)
[2022-07-31] MEDS: MULTIVITAMINS WITH MINERALS, THERAPEUTIC TABLET PO SCH (07:58)
[2022-07-31] MEDS: NALTREXONE HCL 50 MG TABLET PO SCH (07:58)
[2022-07-31] MEDS: DIVALPROEX SODIUM 500 MG ER TABLET PO SCH (07:58)
[2022-07-31 14:32] VITALS: BP 115/69
[2022-07-31] MEDS: IBUPROFEN 600 MG TABLET PO PRN (14:32)
[2022-07-31] MEDS: MELATONIN 5 MG TABLET PO SCH (20:50)
[2022-07-31] MEDS: ZOLPIDEM TARTRATE 10 MG TABLET PO PRN (23:59)
[2022-08-01] MEDS: OMEGA-3/DHA/EPA/FISH OIL 1,000 MG CAPSULE PO SCH (08:21)
[2022-08-01] MEDS: MULTIVITAMINS WITH MINERALS, THERAPEUTIC TABLET PO SCH (08:21)
[2022-08-01] MEDS: OLANZapine 10 MG RAPDIS TABLET PO SCH (08:22)
[2022-08-01] MEDS: DIVALPROEX SODIUM 500 MG ER TABLET PO SCH (08:22)
[2022-08-01] MEDS: NALTREXONE HCL 50 MG TABLET PO SCH (08:22)
[2022-08-01 13:50] VITALS: BP 120/65
[2022-08-01] MEDS: IBUPROFEN 600 MG TABLET PO PRN (13:51)
[2022-08-01 20:51] VITALS: BP 128/78
[2022-08-01] MEDS: MELATONIN 5 MG TABLET PO SCH (21:06)
[2022-08-02] MEDS: ZOLPIDEM TARTRATE 10 MG TABLET PO PRN ×2 (01:51→22:56)
[2022-08-02] MEDS: DIVALPROEX SODIUM 500 MG ER TABLET PO SCH (09:50)
[2022-08-02] MEDS: OLANZapine 10 MG RAPDIS TABLET PO SCH (09:50)
[2022-08-02] MEDS: OMEGA-3/DHA/EPA/FISH OIL 1,000 MG CAPSULE PO SCH (09:50)
[2022-08-02] MEDS: MULTIVITAMINS WITH MINERALS, THERAPEUTIC TABLET PO SCH (09:51)
[2022-08-02] MEDS: NALTREXONE HCL 50 MG TABLET PO SCH (09:51)
[2022-08-02] MEDS: IBUPROFEN 600 MG TABLET PO PRN ×2 (11:23→20:47)
[2022-08-02 12:34] VITALS: BP 121/75
[2022-08-02] MEDS: ACETAMINOPHEN 325 MG TABLET PO PRN (14:39)
[2022-08-02 20:43] VITALS: BP 121/77
[2022-08-02] MEDS: MELATONIN 5 MG TABLET PO SCH (21:13)
[2022-08-03 09:10] VITALS: BP 121/79
[2022-08-03] MEDS: NALTREXONE HCL 50 MG TABLET PO SCH (09:53)
[2022-08-03] MEDS: OLANZapine 10 MG RAPDIS TABLET PO SCH (09:53)
[2022-08-03] MEDS: MULTIVITAMINS WITH MINERALS, THERAPEUTIC TABLET PO SCH (09:53)
[2022-08-03] MEDS: OMEGA-3/DHA/EPA/FISH OIL 1,000 MG CAPSULE PO SCH (09:54)
[2022-08-03] MEDS: DIVALPROEX SODIUM 500 MG ER TABLET PO SCH (09:54)
[2022-08-03] MEDS: MELATONIN 5 MG TABLET PO SCH (20:50)
[2022-08-03 21:07] VITALS: BP 128/83
[2022-08-03] MEDS: ZOLPIDEM TARTRATE 10 MG TABLET PO PRN (21:34)
[2022-08-03 23:45] VITALS: BP 118/76
[2022-08-03] MEDS: ACETAMINOPHEN 325 MG TABLET PO PRN (23:51)
[2022-08-04 08:31] VITALS: BP 104/68
[2022-08-04] MEDS: OMEGA-3/DHA/EPA/FISH OIL 1,000 MG CAPSULE PO SCH (08:51)
[2022-08-04] MEDS: DIVALPROEX SODIUM 500 MG ER TABLET PO SCH (08:51)
[2022-08-04] MEDS: MULTIVITAMINS WITH MINERALS, THERAPEUTIC TABLET PO SCH (08:51)
[2022-08-04] MEDS: OLANZapine 10 MG RAPDIS TABLET PO SCH (08:52)
[2022-08-04] MEDS: NALTREXONE HCL 50 MG TABLET PO SCH (08:56)
[2022-08-04] MEDS: IBUPROFEN 600 MG TABLET PO PRN (16:07)
[2022-08-04 21:00] VITALS: BP 125/70
[2022-08-04] MEDS: MELATONIN 5 MG TABLET PO SCH (21:03)
[2022-08-04] MEDS: ACETAMINOPHEN 325 MG TABLET PO PRN (21:03)
[2022-08-04 21:36] VITALS: BP 121/77
[2022-08-04] MEDS: ZOLPIDEM TARTRATE 10 MG TABLET PO PRN (22:28)
[2022-08-05] MEDS: OMEGA-3/DHA/EPA/FISH OIL 1,000 MG CAPSULE PO SCH (10:06)
[2022-08-05] MEDS: MULTIVITAMINS WITH MINERALS, THERAPEUTIC TABLET PO SCH (10:06)
[2022-08-05] MEDS: OLANZapine 10 MG RAPDIS TABLET PO SCH (10:06)
[2022-08-05] MEDS: DIVALPROEX SODIUM 500 MG ER TABLET PO SCH (10:06)
[2022-08-05] MEDS: NALTREXONE HCL 50 MG TABLET PO SCH (10:06)
[2022-08-05] MEDS: ACETAMINOPHEN 325 MG TABLET PO PRN (10:34)
[2022-08-05] MEDS: IBUPROFEN 600 MG TABLET PO PRN (16:02)
[2022-08-05] MEDS: MELATONIN 5 MG TABLET PO SCH (20:37)
[2022-08-05] MEDS: ZOLPIDEM TARTRATE 10 MG TABLET PO PRN (21:13)
[2022-08-05 21:46] VITALS: BP 105/77
== END 2022-08-06 11:00 | DRG 750 ==
LOC: EMS 14:54 → UNDOADMIN 17:35 → 3EC 17:35
PROVIDERS: ADMIT Psychiatry & Neurology Psychiatry; ATTEND Psychiatry & Neurology Psychiatry
DX: F25.0 Schizoaffective disorder, bipolar type (principal); Z91.148 Patient's other noncompliance with medication regimen for other reason; R45.851 Suicidal ideations; Z20.822 Contact with and (suspected) exposure to COVID-19; F15.90 Other stimulant use, unspecified, uncomplicated; F17.210 Nicotine dependence, cigarettes, uncomplicated; Z55.9 Problems related to education and literacy, unspecified; Z59.9 Problem related to housing and economic circumstances, unspecified; Z63.9 Problem related to primary support group, unspecified; Z65.3 Problems related to other legal circumstances; Z79.899 Other long term (current) drug therapy; Z88.1 Allergy status to other antibiotic agents; Z78.1 Physical restraint status
CPT/HCPCS: 71046; 80053; 80061; 80164; 83036; 84132; 84439; 84443; 85025; 86592; 87081; 99291; G0480; J1630; Q9967; 36415-L1; 36415-TC